=== PATIENT | male | born 1950 | race Caucasian/White ===

== ENCOUNTER 2021-07-18 11:21 | Outpatient (CLI) | payer MEDICARE, SELFPAY ==
[2021-07-18 13:42] LABS: SARS-CoV-2 RNA PCR Negative (Negative)
== END 2021-07-18 11:22 | disposition home or self-care (01) ==
LOC: CHSLAB 11:28
PROVIDERS: PCP Family Medicine; Visit Provider Family Medicine
DX: Z01.818 Encounter for other preprocedural examination (principal); Z20.822 Contact with and (suspected) exposure to COVID-19
CPT/HCPCS: C9803; U0003; U0005

== ENCOUNTER 2021-08-05 10:24 | Outpatient (CLI) | payer MEDICARE, SELFPAY ==
--- NOTE | 2021-08-05 11:12 | EST_ITS ---
Patient Info Name: Michelet Aburto Age: 71 years : 1950 Gender: Male Ht: 71 in Wt: 162 lbs BSA: 1.92 m2 HR: 97 bpm BP: 113 / 68 mmHg Heart Rhythm: Sinus Rhythm Exam Date: 08/05/2021 11:22 AM Exam Location: [facility] Patient Status: Outpatient Admit Date: 08/05/2021 Staff Ordering Physician: Peace Cody NP Attending Provider: Peace Cody NP Exercise Technologist: Emily Loja CT Exercise Physician: Valente Linn DO Exam Type: CA stress test treadmill Study Info Indications - Impaired Exercise Tolerance An exercise stress test was performed. Summary 1. 1. Negative Be exercise stress test for ischemic ST changes by ECG criteria. He achieved 82% MPHR for age group. 2. 2. Poor functional capacity, achieving 4.6 METs of workload. 3. 3. Appropriate HR response to exercise. 4. 4. Appropriate HR recovery at 1 minute post exercise. 5. 5. No imaging with stress testing. 6. 6. Patient informed of the above results. Protocol: [facility] ECG Details Stage: REST Duration (min): 0 min : 54 sec Speed (mph): 0.0 Grade (%): 0 HR (bpm): 96 SBP (mmHg): 113 DBP (mmHg): 68 METS: --- Stage: REST Duration (min): 5 min : 44 sec Speed (mph): 0.0 Grade (%): 0 HR (bpm): 102 SBP (mmHg): 113 DBP (mmHg): 68 METS: --- Stage: STAGE 1 Duration (min): 1 min : 0 sec Speed (mph): 1.7 Grade (%): 10 HR (bpm): 116 SBP (mmHg): 113 DBP (mmHg): 68 METS: --- Stage: STAGE 1 Duration (min): 2 min : 0 sec Speed (mph): 1.7 Grade (%): 10 HR (bpm): 122 SBP (mmHg): 113 DBP (mmHg): 68 METS: --- Stage: STAGE 1 Duration (min): 2 min : 0 sec Speed (mph): 1.7 Grade (%): 10 HR (bpm): 122 SBP (mmHg): 113 DBP (mmHg): 68 METS: --- Stage: RECOVERY Duration (min): 0 min : 59 sec Speed (mph): 0.0 Grade (%): 0 HR (bpm): 119 SBP (mmHg): 130 DBP (mmHg): 52 METS: --- Stage: RECOVERY Duration (min): 1 min : 59 sec Speed (mph): 0.0 Grade (%): 0 HR (bpm): 116 SBP (mmHg): 130 DBP (mmHg): 52 METS: --- Stage: RECOVERY Duration (min): 2 min : 44 sec Speed (mph): 0.0 Grade (%): 0 HR (bpm): --- SBP (mmHg): 140 DBP (mmHg): 67 METS: --- Rest HR: 102 bpm Peak HR: 122 bpm Rest Sys BP: 113 mmHg Peak Sys BP: 140 mmHg Max Pred HR: 147 bpm % Max Pred HR: 83 % Target HR: 125 bpm Max RPP: 17,080 bpm*mmHg Tompkins Score: -6 Termination Reason: Maximal effort/unable to continue Cardiac Symptoms: Shortness of breath Max ST Seg Deviation: 1.60 mm Total Time: 2 min : 0 sec Rest Pinto BP: 68 mmHg Peak Pinto BP: 67 mmHg Angina Score: None Total METS: 4.6 Resting ECG Sinus rhythm. Stress ECG No ST changes. Arrhythmias None. Report Signatures
== END 2021-08-05 10:25 | disposition home or self-care (01) ==
PROVIDERS: PCP Nurse Practitioner Family; Visit Provider Nurse Practitioner Family
DX: R09.89 Other specified symptoms and signs involving the circulatory and respiratory systems (principal)
CPT/HCPCS: 93017

== ENCOUNTER 2021-08-08 08:18 | Outpatient (CLI) | payer MEDICARE, SELFPAY ==
--- NOTE | ~2021-08-08 | XR_ITS ---
EXAMINATION: XR barium swallow modified DATE: 08/08/2021 09:31 INDICATION: Dysphagia, unspecified TECHNIQUE: Modified barium esophagram was performed by myself to administered fluoroscopy, in conjun ction with speech pathologist who administered barium in varying consistencies as per speech patholog ist documentation. This was recorded on tape. A single fluoroscopic spot image was recorded. The DAP for this procedure was 3.8 Gycm2. Fluoroscopy exposure time was 2.439 minutes. FINDINGS: Oral stage: Adequate function. Pharyngeal phase: Reduced laryngeal elevation and adduction, reduced pharyngeal squeeze, vallecular, piriform sinus and pharyngeal wall residue Laryngeal penetration: Present. Aspiration: Present. Laryngeal sensitivity: Absent. IMPRESSION: Abnormal modified barium swallow. Please refer to speech pathologist findings and specifi c feeding recommendations. Reviewed, dictated and finalized at location A. TRANSFER TECHNICIAN IMPRESSION: Abnormal modified barium swallow. Please refer to speech pathologis t findings and specific feeding recommendations.
--- NOTE | ~2021-08-08 | US_ITS ---
EXAMINATION: US carotid duplex BI DATE: 08/08/2021 10:46 INDICATION: Dizziness and giddiness. TECHNIQUE: Grayscale, color Doppler, and pulsed Doppler images of the cervical carotid arteries were obtained. The degree of vessel stenosis is placed in one of the following categories: normal, <50%, 5 0-69%, >=70% but less than near-occlusion, near-occlusion, or total occlusion. Note that percent sten osis relative to normal distal artery lumen diameter is indirectly measured from velocity measurement s as described by Miguel Angel, et al. Radiology 2003; 229:340-346. COMPARISON: CTA 03/02/2014, ultrasound 03/21/2015 FINDINGS: RIGHT: The right common carotid artery (CCA) peak systolic velocity (PSV) is 66 cm/s. The right internal car otid artery (ICA) is totally occluded. There is antegrade flow in the right vertebral artery. LEFT: The left CCA PSV is 106 cm/s. The left ICA PSV is 105 cm/s. The left ICA end-diastolic velocity (EDV) is 20 cm/s. The left ICA/CCA PSV ratio is 1.0. Grayscale and color Doppler images yield an estimate of <50% diameter reduction from plaque in the ICA. There is antegrade flow in the left vertebral eric ry. IMPRESSION: 1. 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 2. <50% stenosis in the left internal carotid artery. Reviewed, dictated and finalized at location A. R PUMP SERVICER
--- NOTE | 2021-08-08 13:43 | STOPEVAL ---
MODIFIED BARIUM SWALLOW EVALUATION: Thank you for referring Michelet Aburto to [facility].? Attending Provider: Peace Cody NP/Brandy Escamilla Referring Provider: * Outpatient Evaluation Outpatient Past Medical History Past Medical History Source of Past Medical History Patient Evaluation Information Problem Diagnosis dysphagia, weight loss; weak voice Additional Evaluation Detail pt reports increased phlegm production; Subjective Information Pt states that after he Query Text:As Reported By Patient/ received the COVID vaccine, he Family has had steady weight loss. Approximately 50lbs. Modified Barium Swallow Evaluation Recent Swallowing History Reports Dysphagia Yes History of Pneumonia No Reported Difficult Consistencies Solids Intake Method Prior to Swallow Oral Evaluation Diet Prior to Swallow Evaluation Regular, Level 7 Liquid Consistency Prior to Swallow Thin (0) Evaluation Consistency Mildly Thick Uncontrolled 1 Other Amount with chin tuck and cue for a small sip Method of Presentation Straw Oral Preparatory Symptoms Within Functional Limits Oral Phase Symptoms Within Functional Limits Pharyngeal Phase Symptoms Aspiration,Bony Protuberance, Laryngeal Penetration,Reduced Laryngeal Elevation,Reduced Lingual Pressure,Residue in [place] Severity of Vallecular Residue Moderate - 25-50 % Epiglottic Ligament Covered Severity of Pyriform Sinus Residue Trace - 1-5 % Trace Coating of the Mucosa 8 Point Laryngeal Penetration-Aspiration Material Enters Airway Below Scale Vocal Cords, No Effort Made to Eject Aspiration Severity Trace Pharyngeal Phase Comments no epiglottic inversion was exhibited. Solid Consistency Other Amount with chin tuck and cues to effortful swallow Method of Presentation Spoon Oral Preparatory Symptoms Within Functional Limits Oral Phase Symptoms Within Functional Limits, Lingual Pumping Pharyngeal Phase Symptoms Bony Protuberance,Laryngeal Penetration,Reduced Laryngeal Elevation,Reduced Lingual Pressure,Residue in [place] ,Residue/Pyriform Sinus Severity of Vallecular Residue Severe - > 50% Filled to Epiglottic Rim Severity of Pyriform Sinus Residue
== END 2021-08-08 08:19 | disposition home or self-care (01) ==
PROVIDERS: PCP Family Medicine; Visit Provider Nurse Practitioner Family
DX: R42 Dizziness and giddiness (principal); R68.89 Other general symptoms and signs; E78.5 Hyperlipidemia, unspecified; Z13.6 Encounter for screening for cardiovascular disorders; R13.10 Dysphagia, unspecified; R63.4 Abnormal weight loss; R93.89 Abnormal findings on diagnostic imaging of other specified body structures; I65.23 Occlusion and stenosis of bilateral carotid arteries
CPT/HCPCS: 92611; 93880

== ENCOUNTER 2021-09-19 09:34 | Outpatient (CLI) | payer MEDICARE, SELFPAY ==
--- NOTE | ~2021-09-19 | CT_ITS ---
EXAMINATION: CT brain wo con DATE: 09/19/2021 09:51 INDICATION: Dysphagia TECHNIQUE: Computed tomography (CT) of the head was performed without intravenous contrast. The dose- length product was 605.33 mGy-cm. Automated exposure control and iterative reconstruction technique w ere employed. COMPARISON: None FINDINGS: Mild generalized atrophy. There are scattered mild periventricular and subcortical white ma tter changes, most likely related to small vessel ischemic disease (microangiopathy). No ventriculome davion or midline shift. Paranasal sinuses and mastoids are pneumatized. No depressed skull fractures. Midline sagittal images are unremarkable. IMPRESSION: 1. No acute intracranial abnormality. 2: Chronic age-related findings. Reviewed, dictated and finalized at location B. RENCE ARCHIVIST
== END 2021-09-19 09:35 | disposition home or self-care (01) ==
PROVIDERS: PCP Family Medicine; Visit Provider Family Medicine
DX: R13.10 Dysphagia, unspecified (principal)
CPT/HCPCS: 70450

== ENCOUNTER 2021-10-03 11:00 | Outpatient (RCR) | payer MEDICARE, SELFPAY ==
--- NOTE | 2021-09-09 12:20 | STOPEVAL ---
Thank you for referring Michelet Aburto to [facility].? The patient is scheduled to be seen for therapy? 2x/week for 4 weeks. Please review, sign, date and return this plan of care LORENA. I agree with and certify that the following plan of care is medically necessary. Referring Physician Date Attending Provider: New Escamilla MD Assessment Status Assessment Status Evaluation Outpatient Past Medical History Past Medical History Source of Past Medical History Patient Neurological History Hx Neurological Disorders No Significant History Cardiovascular History Hx Hypertension Yes: Patient stated he had been on medicine but not now. Respiratory History Hx Other Respiratory Disorders Yes: Reports shortness of breath in bed until incline pillow; uses nasal cleane Gastrointestinal History Hx Other Gastrointestinal Disorders Yes: Constipation Genitourinary History Hx Other Genitourinary Disorders Yes: Has difficulty urinating at times. Musculoskeletal History Hx Musculoskeletal Disorders No Significant History Hematological History Hx Hematological Disorders No Significant History Endocrine History Hx Endocrine Disorders No Significant History HEENT History Hx Sinus Problems Yes: Uses a nasal welt stitch cleaner daily Integumentary History Hx Skin Disorders No Significant History Reproductive History Hx Reproductive Disorders No Significant History Psychosocial History Hx Depression Yes Hx Eating Disorder Yes: Reports poor appetite Pain History History of Any Previous or Ongoing No Significant History Instance of Pain Anesthesia History Hx Anesthesia Reactions No Significant History Evaluation Information Problem Diagnosis Dysphagia Onset 09/2020 Cause Unknown Subjective Information Patient reports that after he Query Text:As Reported By Patient/ had taken his first COVID Family vaccine in September,, he began feeling sick and began to lose weight. He reports that around that time, he began experiencing excessive phlegm in his throat causing him to have to cough and clear the material. Additional vaccines did not cause additional symptoms. He reports that he began to have difficulty swallowing including coughing after
--- NOTE | 2021-10-03 13:38 | STOPEVAL ---
SPEECH THERAPY DISCHARGE SUMMARY Thank you for referring Michelet Aburto to [facility].? Please review, sign, date and return this discharge summary. I agree with discharge at this time. Referring Physician Date Attending Provider: New Escamilla MD * Pain History History of Any Previous or Ongoing No Significant History Instance of Pain Anesthesia History Hx Anesthesia Reactions No Significant History Pain Assessment Timing of Pain Assessment Timing of Pain Assessment Re-assessment Pain Scale Pain Scale Used Numeric (1 - 10) Self Report Pain Assessment Right Hip(s) Reported Pain Level 2 Pain Description Aching Lowest Pain Intensity 2 Greatest Pain Intensity 3 Pain Aggravating Factors Walking,Weight Bearing/ Standing Pain Behaviors Grimacing Pain Score Pain Score 2: Self Report Interventions Used Interventions Used By Clinicians Distraction,Position Change ST Clinical Summary Clinical Summary ST Clinical Summary This patient was observed during fall prior to the Speech Therapy session. He reported attempting to turn and sit in a wheelchair, became dizzy and fell to the ground. Reports pain in right hip, not bothering him much until he stood to exit the wheelchair at end of session. Refused to go to Emergency Department. Apparently four to five staff members were present to assist with uprighting him into the wheelchair. An incident report was filed by staff who assisted patient. This patient has been seen for Speech Therapy twice a week since 09/10/21 for a total of seven visits (one visit omitted due to severe weather) with therapy focusing on improving swallowing skills. Patient has received four treatments of VitalStim,neuromuscular electrical stimulation to the throat to improve the strength of the swallow. Initially, a Modified Barium Swallow study on indicated risk of aspiration on thin liquids due to poor laryngeal elevation and epiglottal inversion. At this time of discharge, patient and report that he is able to swallow a variety of solids and liquids without signs of aspiration including wet vocal quality and throat clearing/coughing. See below for goal progress. Of concern is patient's vocal loudness (overall decreased),vocal pitch (determined to be higher than expected for a grown male and when compared to voice prior to weight loss), and speech intelligibility (consistent omission of /s,z/sounds and sh sound during conversational speech indicating most likely lingual weakness). Additionally, they report patient has poor appetite and therefore is not taking in enough calories per day to sustain even his current weight. Patient and spouse report patient has lost over 50 pounds in the past six months and that he has lost an additional two pounds since the initiation of Speech Therapy. Lastly, patient fell upon entering the outpatient center indicating concerns with his overall strength and his own ability to monitor his movements to avoid falling. This carries-over to his speech issues; even though he knows he is not speaking loudly or clearly, he still continues to speak as he has been. Patient performed as follows on goals:
== END 2021-10-06 10:36 | disposition home or self-care (01) ==
LOC: ANHST 11:00
PROVIDERS: PCP Family Medicine; Visit Provider Family Medicine
DX: R13.10 Dysphagia, unspecified (principal)
CPT/HCPCS: 92526; 92610

== ENCOUNTER 2021-10-10 12:39 | Outpatient (CLI) | payer MEDICARE, SELFPAY ==
--- NOTE | ~2021-10-10 | CT_ITS ---
EXAMINATION: CT chest abdomen pelvis w con DATE: 10/10/2021 13:14 INDICATION: Abnormal weight loss TECHNIQUE: Transaxial computed tomographic images of the chest, abdomen, and pelvis were obtained aft er the administration of 100 cc of Omnipaque 350 intravenous contrast. The dose-length product (DLP) was 577.52 mGy-cm. Automated exposure control and iterative reconstruction technique were employed. COMPARISON: None FINDINGS: CHEST CT: There is a 4 mm nodule of the left lung apex. The lungs are free of acute opacities. There is no pleu ral effusion or pneumothorax. No pathologically enlarged thoracic lymph nodes are identified. The hea rt size is normal. There is calcified coronary artery atherosclerosis. Low-density material projectin g in the proximal aspect of the right mainstem bronchus likely reflects secretions. 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 ABDOMEN/PELVIS CT: The liver, spleen, pancreas, gallbladder, and adrenal glands are normal. The kidneys are unremarkable . There is calcified atherosclerosis of the aorta and many of the other arteries. No pathologically e nlarged abdominal or pelvic lymph nodes are identified. There is no free intraperitoneal gas or evide nce of bowel obstruction. There is moderate lumbar spondylosis. IMPRESSION: 1. No CT correlate for the patient's symptoms. Reviewed, dictated and finalized at location A. ENPLAY WRITER
[2021-10-10 13:07] LABS: Estimated Glomerular Filt Rate > 60
== END 2021-10-10 12:40 | disposition home or self-care (01) ==
LOC: ANHIMG 12:46
PROVIDERS: PCP Family Medicine; Visit Provider Family Medicine
DX: R63.4 Abnormal weight loss (principal)
CPT/HCPCS: 71260; 74177; Q9967

== ENCOUNTER 2021-10-11 14:50 | Inpatient (IN) | payer MEDICARE, SELFPAY ==
[2021-10-11] VITALS (15 sets, daily range): BP systolic 94–161; BP diastolic 51–69; PULSE 80–114; RESP 18–31; TEMP 36.4–36.5; O2SAT 93–99; BMI 21.6
--- NOTE | ~2021-10-11 | CT_ITS ---
EXAMINATION: CT brain wo con DATE: 10/11/2021 16:00 INDICATION: Dysphagia. TECHNIQUE: Computed tomography (CT) of the head was performed without intravenous contrast. The dose- length product was 681.00 mGy-cm. Automated exposure control and iterative reconstruction technique w ere employed. COMPARISON: CT dated 09/19/2021 FINDINGS: Mild generalized atrophy. No acute intracranial hemorrhage, infarction, mass or mass effect . There are scattered mild periventricular and subcortical white matter changes, most likely related to small vessel ischemic disease (microangiopathy). No ventriculomegaly or midline shift. There is in tracranial atherosclerosis. Paranasal sinuses and mastoids are pneumatized. No depressed skull fractu res. IMPRESSION: 1. No acute intracranial abnormality. Reviewed, dictated and finalized at location A. BUILDER SUPERVISOR
--- NOTE | ~2021-10-11 | XR_ITS ---
EXAMINATION: XR chest 1V 10/11/2021 16:03 INDICATION: Hypoxia. PROCEDURE: AP portable chest COMPARISON: 04/02/2014 FINDINGS: The lungs are clear. The cardiomediastinal silhouette is within normal limits. There are no pleural effusions. There is no pneumothorax suspected. There is prominent bilateral costochondra l calcification at the first ribs. The lungs are hyperinflated which is consistent with, but not diag nostic of chronic obstructive pulmonary disease. IMPRESSION: 1: NO ACUTE CARDIOPULMONARY DISEASE. Reviewed, dictated and finalized at location A. ATE SECURITY GUARD
--- NOTE | 2021-10-11 15:03 | ECG_ITS ---
Measurements Intervals [place] Rate: 88 P: 76 MN: 145 QRS: 66 QRSD: 94 T: 64 QT: 363 QTc: 441 Interpretive Statements SINUS RHYTHM BASELINE ARTIFACT- II, III, AVR, AVL, AVF NORMAL ECG Electronically Signed On 10-12-2021 7:49:44 VOLUNTEER SPECIALIST by Valente Linn D.O.
[2021-10-11 15:12] LABS: Glucose Point of Care 130 mg/dl (65-105)
[2021-10-11 15:14] LABS: Basophils Absolute Auto 0.1 K/mm3 (0.0-0.1); Basophils Percent Auto 0.4 % (0.2-1.2); Eosinophils Percent Auto 0.3 % (0-4.4); Hematocrit 44.3 % (42.0-52.0); Hemoglobin 13.6 g/dL (14.0-18.0); Immature Granulocyte Absolute 0.03 K/mm3 (0.00-0.031); Immature Granulocyte Percent A 0.2 % (0-0.5); Lymphocytes Absolute Auto 1.97 K/mm3 (0.9-3.2); Lymphocytes Percent Auto 16.2 % (18.3-44.2); Mean Corpuscular HGB Conc 30.7 g/dl (32-36); Mean Corpuscular Hemoglobin 28.3 pg (26-34); Mean Corpuscular Volume 92.1 fl (80-100); Mean Platelet Volume 9.2 fl (7.4-10.4); Monocytes Absolute Auto 0.7 K/mm3 (0.1-0.6); Monocytes Percent Auto 5.9 % (2.6-8.5); Neutrophils Absolute Auto 9.3 K/mm3 (1.3-6.7); Platelet Count Result 303 k/mm3 (150-375); Red Blood Count 4.81 M/mm3 (4.6-6.20); Red Cell Distribution Width 13.5 % (11.5-14.5); White Blood Count 12.1 K/mm3 (4.5-10.0)
[2021-10-11 15:31] LABS: Prothrombin Time 12.7 Seconds (11.1-14.7)
--- NOTE | 2021-10-11 15:31 | ED.AMS ---
HPI - Altered Mental Status General Chief Complaint: Altered Mental Status Stated Complaint: WEAKNESS,AMS Time Seen by Provider: 10/11/21 15:09 Source: patient History of Present Illness HPI narrative: Patient brought in for altered mental status. Family reports over the past 2 weeks he has had progressive of weakness and decreased appetite his symptoms come more severe over the past 2 to 3 days. This morning family came over to visit he and the was unable to wake her up and noted pulse ox in the 80% at home they called EMS and he was brought into the ER for further evaluation. Family has not noted any nausea or vomiting have not noted any fevers noted no recent cough or congestion. Patient had not recently complaining of any focal areas of pain. Related Data Home Medications Medication Instructions Recorded Confirmed aspirin 325 mg tablet 325 mg PO DAILY 07/07/21 09/16/21 melatonin PO 07/07/21 09/16/21 rosuvastatin 20 mg tablet 20 mg PO DAILY 07/07/21 09/16/21 metoprolol succinate 50 mg 50 mg PO DAILY 08/06/21 09/16/21 tablet,extended release 24 hr Allergies Allergy/AdvReac Type Severity Reaction Status Date / Time hydrocodone Allergy Mild ITCHING Verified 10/11/21 15:27 Review of Systems Review of Systems: ROS unobtainable: Yes unobtainable due to medical condition PMFSH Past Medical History Medical History BPH without obstruction/lower urinary tract symptoms COPD (chronic obstructive pulmonary disease) Decreased activity tolerance Depression with anxiety Dizziness Dizziness, nonspecific Dysphagia CT of the brain on 09/19/2021 was negative Encounter to establish care Fatigue GERD (gastroesophageal reflux disease) Hyperlipidemia Nocturia Right knee pain Right-sided carotid artery disease 100% occlusion of the right coronary artery on carotid Doppler study 08/08/2021 with less than 50% on left Screening examination for infectious disease Screening for cardiovascular condition Seasonal allergic rhinitis Sinusitis Weight loss CT of the brain on 09/19/2021 was negative. Social History Social History Smoking status: Never smoker Alcohol intake: never Substance use: never Substance use type: does not use Exam Narrative: GENERAL: Well-appearing, well-nourished, and in no acute distress. HEAD: Normocephalic, atraumatic. EYES: PERRLA and EOMI. ENT: Nares clear, no rhinorrhea or epistaxis. Mucous membranes moist. NECK: Supple. No masses. No JVD CHEST: Clear to auscultation. No respiratory distress. No wheezes rales or rhonchi HEART: Regular rate and rhythm. No murmur heard. Normal peripheral pulses. ABDOMEN: Soft, nontender, nondistended, normal active bowel sounds. EXTREMITIES: Normal range of motion. No edema. SKIN: Warm, dry, no rash. NEURO: Patient moves all extremities in response to noxious stimuli does not respond to any verbal commands PSYCH: Normal mood and affect. Course Reevaluation(s) Reevaluation #1: Patient now responding to yes/no questions voices concerns that he needs to urinate Date: 10/11/21 Time: 15:41 Reevaluation #2: Patient resting comfortably on BiPAP work-up and imaging reviewed with patient and family patient family are comfortable with inpatient plan. Date: 10/11/21 Time: 16:41 Vital Signs Vital signs: Vital Signs Temperature 36.4 C 10/11/21 14:53 Pulse Rate 97 10/11/21 14:53 Respiratory Rate 20 10/11/21 14:53 Blood Pressure 161/69 H 10/11/21 14:53 Pulse Oximetry 99 10/11/21 14:53 Temperature 36.4 C 10/11/21 14:53 Pulse Rate 96 10/11/21 18:55 Respiratory Rate 19 10/11/21 18:55 Blood Pressure 94/51 L 10/11/21 18:55 Pulse Oximetry 96 10/11/21 18:55 MDM - Altered Mental Status MDM Narrative Medical decision making narrative: Patient brought in for altered mental status. Patient initially responded r
[2021-10-11 15:32] LABS: Partial Thromboplastin Time 28.8 SECONDS (22.3-36.8)
[2021-10-11 15:34] LABS: Alveolar/Arterial O2 Gradient 13.8 mmHg; Base Excess ABG 13.2 mEq/l (+/-2.0); Fractional Inspired Oxygen 32 %; HCO3 ABG 44.2 mEq/l (22.0-26.0); Oxygen Content ABG 19.3 %vol (16.0-22.0); Oxyhemoglobin 96.2 % THb (90.0-100.0); PO2 ABG 106.1 mmHg (80.0-100.0); PO2 FiO2 Ratio Arterial Blood 3.32 %; Total Hemoglobin 14.2 g/dL (12.0-18.0)
[2021-10-11 15:35] LABS: pH ABG 7.297 (7.350-7.450)
[2021-10-11 15:36] LABS: Device NASAL CANNULA; Modified Allen's Test Pass; PCO2 ABG 92.5 mmHg (35.0-45.0); Site Drawn RIGHT RADIAL
[2021-10-11 15:42] LABS: Add Urine Microscopic? YES; Appearance Urine Clear (Clear); Bacteria Urine Trace /hpf; Bilirubin Urine Negative (Negative); Blood Urine Negative (Negative); Color Urine Yellow (Yellow); Glucose Urine UA Negative (Negative); Ketones Urine Negative (Negative); Leukocyte Esterase Ur Negative LEU/UL (Negative); Mucus Urine Rare /lpf; Nitrate Urine Negative (Negative); Protein Urine Negative (Negative); RBC Urine 0-2 /hpf (0-2); Specific Grav Ur 1.021 (1.001-1.035); WBC Urine 0-3 /hpf
[2021-10-11] MEDS: SODIUM CHLORIDE 0.9% IV 500 ML 999 ML IV CONT (15:51)
[2021-10-11 16:02] LABS: Lactic Acid Reflex < 0.5 mmol/L (0.7-2.1)
[2021-10-11 16:13] LABS: Alanine Aminotransferase 19 U/L (4-50); Alkaline Phosphatase 93 U/L (38-126); Aspartate Amino Transferase 23 U/L (17-59); Bilirubin,Total 0.5 mg/dL (0.2-1.3); Blood Urea Nitrogen 23 mg/dL (9-20); Calcium 10.1 mg/dL (8.4-10.2); Carbon Dioxide > 40 mmol/L (22-30); Chloride 97 mmol/L (98-107); Estimated Glomerular Filt Rate > 60; Glucose 132 mg/dL (65-110); Potassium 3.9 mmol/L (3.4-5.0); Sodium 143 mmol/L (137-145)
[2021-10-11] MEDS: methylPREDNISolone SOD SUCC 125 MG VIAL IV PUSH (16:49)
[2021-10-11] MEDS: ALBUTEROL SULFATE NEB 2.5 MG/0.5 ML INH 5 MG INHALATION (16:52)
[2021-10-11] MEDS: IPRATROPIUM BR 0.02% INH SOLN 0.5 MG/2.5 ML VIAL INHALATION (16:53)
--- NOTE | 2021-10-11 17:30 | PM.IMHP ---
H&P: HPI History of Present Illness Date/Time: 10/11/21 17:30 Chief Complaint: Altered mental status. Narrative: This is a 71-year-old male with COPD, sleep apnea, hypertension, GERD, depression, and benign prostatic hyperplasia who presented to the emergency department via EMS from home for evaluation of altered mental status. He is currently a bit confused and on BiPAP in thus a majority of the following is obtained via a review of his electronic medical records as well as discussions with his . Over the past 3 days or so he has been less interactive and ?not thinking straight.? This morning his was unable to arouse him from sleep and she called 911. On EMS arrival his SpO2 was in the 80s and he was placed on nasal cannula. ABG done on arrival showed a pCO2 greater than 90 and he has been started on a BiPAP. Over the last hour so he has become progressively more awake and oriented. Patient's reports that he was diagnosed with COPD but he has never had a formal workup and he is on no inhalers at home. She goes on to say that he has ?no symptoms? to suggest that he has underlying COPD and she says he never seems short of breath though he reported chronic shortness of breath to his doctor, worse over last 3 months, on a visit just several weeks ago. She goes on to say that for the last several months he has essentially lived on the couch, getting up only to use the bathroom. He eats his meals and sleeps on the couch. Apparently he has no energy, is very fatigued, and sleeps a lot. She attributes that to a 60 lb weight loss in just under years time despite ?taking in enough calories, at least 1800 to 2500 a day.? His doctor has done a thorough evaluation for his weight loss to include upper and lower endoscopies which were reportedly unremarkable. He has had a normal PSA. CT of the chest, abdomen, and pelvis showed no findings. He did have a swallow study done couple of months ago due to dysphagia and he completed 10 therapy sessions with the speech therapist and apparently he has not had any other problems with dysphagia. Since the weight loss he apparently no longer snores and he has not used a CPAP for quite some time. He has not had any recent cold or flu symptoms. At the time my evaluation he denies fever, chills, sweats, chest pain, pleuritic pain, current shortness of breath, nausea, vomiting, orthopnea, PND, and lower extremity edema. Review of Systems Review of Systems: Twelve systems were reviewed. Somewhat limited as he is still a bit confused though his fills in the gaps. Except as documented in HPI, all other systems were reviewed and are negative. [facility] Past Medical History Medical History Benign prostatic hyperplasia Chronic obstructive pulmonary disease Depression with anxiety Dysphagia CT of the brain on 09/19/2021 was negative. Completed 10 sessions with speech therapist. Gastroesophageal reflux disease History of tobacco abuse Hyperlipidemia Nocturia Right-sided carotid artery disease 100% occlusion of the right coronary artery on carotid Doppler study 08/08/2021 with less than 50% on left. Seasonal allergic rhinitis Weight loss Nearly 60 lb unintentional weight loss in 2020. CT of the brain, chest, abdomen, and pelvis were unremarkable in August and September 2021. Upper and lower endoscopies also reportedly unremarkable in fall 2020. Has had normal PSA. Surgical History Surgical History History of cardiac catheterization Family History Family History Sibling Colon cancer Father Hypertension Social History Social History Social History: Surrogate decision maker: Yumiko Aburto, spouse. They have 4 adult children. Code status: Do not resuscitate. Smoking packs per day: 1
[2021-10-11 17:35] LABS: Alveolar/Arterial O2 Gradient 31.1 mmHg; Base Excess ABG 10.7 mEq/l (+/-2.0); Carboxyhemoglobin 0.5 % THb (0-2.0); Fractional Inspired Oxygen 30 %; Methemoglobin ABG 0.2 %THb (0-1.5); Oxygen Content ABG 17.9 %vol (16.0-22.0); Oxygen Saturation ABG 97.1 % (95.0-100.0); Oxyhemoglobin 96.6 % THb (90.0-100.0); PO2 ABG 100.1 mmHg (80.0-100.0); PO2 FiO2 Ratio Arterial Blood 3.34 %; Reduced Hemoglobin 2.7 %THb (0-5.0); Total Hemoglobin 13.1 g/dL (12.0-18.0); pH ABG 7.361 (7.350-7.450)
[2021-10-11 17:36] LABS: Device NON-INVASIVE VENT; Modified Allen's Test Pass; Non-Invasive Expiratory Pressure 6 CMH2O; Non-Invasive Inspiratory Pressure 18 CMH2O; Non-Invasive Vent Rate 22 /MIN; PCO2 ABG 70.4 mmHg (35.0-45.0); Site Drawn RIGHT RADIAL
[2021-10-11] MEDS: SODIUM CHLORIDE 0.9% IV 1,000 ML 125 ML IV CONT (18:05)
--- NOTE | 2021-10-11 20:52 | ADMIMU ---
This patient, Michelet Valladarescynthia Jones, was admitted to IMU status, and placed in IMU Room 201-01 at 2000. Patient/family oriented to hospital policies and general routines including ID bracelet, bed and alarms, visiting hours, pain management, procedures, bathroom and other care routines, personal items, smoking policy, room service/diet, and visiting hours. Valuables list has been completed. Information on how to activate the Rapid Response Team has been discussed. Patient/Family are encouraged to report perceived risks to care and to ask questions if they do not understand what they are told or what they should do.
--- NOTE | 2021-10-11 20:52 | PC.NURSE ---
Yumiko called and admit information and med list obtained. states that patient has been losing weight since last October and so far has lost 56 pounds. He has become so weak he has had to have swallow therapy and his last appointment was Oct 03 2021. Patient has also fallen twice in last 2 weeks and has been having dizzy spells. relays that speech therapy was recommended (because his voice has become weak) at last appointment of swallow therapy and he has since been swallowing well-no restrictions.
[2021-10-12] VITALS (28 sets, daily range): BP systolic 96–127; BP diastolic 42–76; PULSE 68–109; RESP 14–22; TEMP 36.2–36.7; O2SAT 96–100
[2021-10-12] MEDS: methylPREDNISolone SOD SUCC 125 MG VIAL 60 MG IV PUSH ×4 (00:45→18:22)
[2021-10-12] MEDS: SODIUM CHLORIDE 0.9% IV 1,000 ML 125 ML IV CONT (00:45)
[2021-10-12] MEDS: IPRATROPIUM BR 0.02% INH SOLN 0.5 MG/2.5 ML VIAL INHALATION ×4 (01:09→20:00)
[2021-10-12] MEDS: ALBUTEROL SULFATE NEB 2.5 MG/0.5 ML INH 5 MG INHALATION ×4 (01:09→20:00)
[2021-10-12 01:24] LABS: Alveolar/Arterial O2 Gradient 35.2 mmHg; Base Excess ABG 7.3 mEq/l (+/-2.0); Carboxyhemoglobin 0.3 % THb (0-2.0); Fractional Inspired Oxygen 30 %; HCO3 ABG 33.9 mEq/l (22.0-26.0); Methemoglobin ABG 0.5 %THb (0-1.5); Oxygen Content ABG 17.4 %vol (16.0-22.0); Oxyhemoglobin 96.6 % THb (90.0-100.0); PCO2 ABG 57.1 mmHg (35.0-45.0); PO2 ABG 111.6 mmHg (80.0-100.0); PO2 FiO2 Ratio Arterial Blood 3.72 %; Reduced Hemoglobin 2.6 %THb (0-5.0); Total Hemoglobin 12.7 g/dL (12.0-18.0); pH ABG 7.392 (7.350-7.450)
[2021-10-12 01:25] LABS: Device NON-INVASIVE VENT; Modified Allen's Test Pass; Non-Invasive Inspiratory Pressure 16 CMH2O; Non-Invasive Vent Rate 18 /MIN; Site Drawn RIGHT RADIAL
[2021-10-12 01:26] LABS: Non-Invasive Expiratory Pressure 6 CMH2O
[2021-10-12 05:01] LABS: Hematocrit 37.7 % (42.0-52.0); Hemoglobin 11.5 g/dL (14.0-18.0); Mean Corpuscular HGB Conc 30.5 g/dl (32-36); Mean Corpuscular Hemoglobin 28.3 pg (26-34); Mean Corpuscular Volume 92.6 fl (80-100); Mean Platelet Volume 9.7 fl (7.4-10.4); Platelet Count Result 257 k/mm3 (150-375); Red Blood Count 4.07 M/mm3 (4.6-6.20); Red Cell Distribution Width 13.8 % (11.5-14.5); White Blood Count 8.4 K/mm3 (4.5-10.0)
[2021-10-12 05:13] LABS: Alanine Aminotransferase 20 U/L (4-50); Albumin Level 3.5 g/dL (3.5-5.1); Alkaline Phosphatase 75 U/L (38-126); Anion Gap 3 mmol/L (8-16); Aspartate Amino Transferase 23 U/L (17-59); Bilirubin,Total 0.7 mg/dL (0.2-1.3); Blood Urea Nitrogen 36 mg/dL (9-20); Calcium 9.6 mg/dL (8.4-10.2); Carbon Dioxide 35 mmol/L (22-30); Chloride 101 mmol/L (98-107); Estimated CRCL calculation 73 ml/min; Estimated Glomerular Filt Rate > 60; Glucose 159 mg/dL (65-110); Magnesium 2.2 mg/dL (1.6-2.3); Potassium 4.3 mmol/L (3.4-5.0); Sodium 139 mmol/L (137-145)
[2021-10-12 05:17] LABS: Prealbumin 16.5 mg/dL (17.6-36.0)
[2021-10-12 06:13] LABS: Thyroid Stimulating Hormone Reflex 0.342 uIU/mL (0.465-4.68)
[2021-10-12] MEDS: ENOXAPARIN 40 MG/0.4 ML SYRINGE SUB-Q (08:04)
[2021-10-12 08:15] LABS: EDCOVIDSCREEN Negative (Negative)
[2021-10-12 08:41] LABS: Free T4 Free Thyroxine Reflex 1.16 ng/dL (0.78-2.19)
[2021-10-12 09:22] LABS: Total Triiodothyronine (T3) 0.59 NG/ML (0.97-1.69)
--- NOTE | 2021-10-12 09:48 | PM.IMPN ---
Progress Note: A&P Assessment and Plan (1) Acute respiratory failure with hypoxia and hypercarbia: Code(s): J96.01 - Acute respiratory failure with hypoxia; J96.02 - Acute respiratory failure with hypercapnia Status: Acute Assessment and Plan: Patient is currently on BiPAP with improvement his blood gases. He will remain on BiPAP overnight. I will ask Dr. Avina to see him in consultation as he needs close follow-up and a formal outpatient work with regards to his COPD. (2) Encephalopathy: Code(s): G93.40 - Encephalopathy, unspecified Status: Acute Assessment and Plan: Secondary to hypercarbia, improved since he has been started on BiPAP. Now A&O x4. (3) COPD exacerbation: Code(s): J44.1 - Chronic obstructive pulmonary disease with (acute) exacerbation Status: Acute Assessment and Plan: Continue scheduled bronchodilators and methylprednisolone. (4) Carotid artery disease: Code(s): I77.9 - Disorder of arteries and arterioles, unspecified Status: Acute Assessment and Plan: Status post left carotid endarterectomy with known 100% occlusion on right. Brain CT unremarkable. (5) Depression: Code(s): F32.A - Depression, unspecified Status: Acute Assessment and Plan: May be playing a role in his decline recently (spends most of this time the couch, weight loss). Patient denies harmful thoughts. (6) Weight loss: Code(s): R63.4 - Abnormal weight loss Status: Acute Assessment and Plan: 10/12/2021 Plan is to continue BiPAP. Patient TSH and T3 are abnormal will repeat them if needed treat. Otherwise continue current plan of care and treatment. Subjective Date/time seen: 10/12/21 09:48 Patient was seen during the morning rounds today. Still requiring BiPAP treatment. Mild shortness of breath, no chest pain. No abdominal pain, no nausea, no vomiting, mood stable. Review of Systems Review of Systems: All systems reviewed & are unremarkable except as noted in HPI and below (the history and physical examination.) Exam Narrative: General: Moderately ill-appearing male sitting up in bed on BiPAP. Weight: 72.4 kg. BMI: 21.6. HEENT: PERRL, EOMI. Sclerae anicteric. Conjunctiva mildly injected. Oral mucosa appears tacky through the mask. Neck: Supple. No JVD. Unable to assess for bruits given transmitted sounds from BiPAP. Respiratory: On BiPAP, tolerating it well. Diminished lung sounds throughout with faint expiratory wheezes. Cardiovascular: Regular rate and rhythm with S1-S2. Gastrointestinal: Abdomen is soft, nontender, and nondistended with positive bowel sounds. Skin: Warm and dry. No rash or lesions on limited exam. Extremities: No cyanosis, clubbing, or edema. Radial and pedal pulses intact. Negative sign. Neurological: Alert and oriented x4 after being on BiPAP for an hour. Cranial nerves 2-12 are grossly intact. Speech is clear. No facial asymmetry. Hand state director and foot pushes equal bilaterally. Noted to move upper and lower extremities. No gross focal deficits to casual conversation. Psychiatric: Appropriate mood and affect. Seems a bit disoriented with regards what happened today and how he ended up in the hospital. Objective Data Vital Signs Vital Signs: Vital Signs - 24 hr 10/11/21 14:53 10/11/21 15:46 10/11/21 16:42 Temperature 36.4 C Pulse Rate 97 98 80 Respiratory Rate 20 25 H 20 Blood Pressure 161/69 H Pulse Oximetry 99 94 93 10/11/21 16:47 10/11/21 16:50 10/11/21 17:02 Temperature Pulse Rate 88 88 114 H Respiratory Rate 22 H 22 H 22 H Blood Pressure Pulse Oximetry 10/11/21 17:30 10/11/21 18:55 10/11/21 19:50 Temperature 36.4 C L Pulse Rate 96 96 97 Respiratory Rate 31 H 19 20 Blood Pressure 94/51 L 95/51 L Pulse Oximetry 96 99 10/11/21 20:00 10/11/21 20:02 10/11/21 21:36 Temperature Pulse Rate 95 81 Respiratory Rate 18 Blood Pre
--- NOTE | 2021-10-12 16:36 | PM.CNPUL ---
Assessment and Plan Assessment and plan (1) Acute respiratory failure with hypoxia and hypercarbia: Code(s): J96.01 - Acute respiratory failure with hypoxia; J96.02 - Acute respiratory failure with hypercapnia Status: Acute Assessment and Plan: He was admitted with increased shortness of breath, acute on chronic hypercapnic hypoxemic respiratory failure that responded to BiPAP and O2. His main complaint over the last year is unintended weight loss. He has 2 birds in his home, raising the concern for hypersensitivity pneumonitis however the chest CT does not show typical findings present in HP- no GGO, nodules, air trapping, or fibrosis. Sometimes the CT findings are fleeting. He has been short of breath for months and losing weight for a year. His imaging should show something abnormal. His CXR shows hyperinflation without any evidence of fibrosis. Will check a HP panel, MADELYN, and add more COPD treatment with Advair. He will need O2 walk study before going home, and PFT with testing of respiratory muscle strength MEP and MIP 4-8 weeks after discharge. He has documented laryngeal penetration with swallowing however no signs of aspiration. He completed 7 sessions of speech therapy however still had a weak raspy voice and abnormal enunciation of some words. He may have a progressive neurological process that contributed to his hypercapnia. (2) COPD exacerbation: Code(s): J44.1 - Chronic obstructive pulmonary disease with (acute) exacerbation Status: Acute Assessment and Plan: He has COPD clinically, not on medications at home. Will add Advair, change solumedrol to prednisone tomorrow am and start taper. (3) History of tobacco abuse: Code(s): Z87.891 - Personal history of nicotine dependence Status: Acute Assessment and Plan: 1 ppd x 50 years, stopped around 2011; still a candidate for annual LDCT screening History of Present Illness History of Present Illness Consult date: 10/12/21 Requesting physician: Adamaris Byrd PA-C Reason for consult: other (hypercapnia) Chief complaint: respiratory failure Narrative: NEW: Michelet Aburto is a 71 year old man with worsening weight loss over the last year. He says that he was around 200 lb / 90 kg when he had his first COVID vaccination in Sep 2020, and has had progressive weight loss since, currently 72 kg = 158.7 lb, 42 lb estimate lost. He has had multiple tests to evaluate this including modified barium swallow 08/08/2021 showing laryngeal penetration, and was treated with speech therapy. His TSH was normal in Jul. His CT chest/abd/pelvis 10/10/21 did not show anything to explain his wt loss. He has a history of smoking starting at age 10, smoked on average 1 ppd for 50 years, quit about 10 years ago. He has noticed increased shortness of breath over the last 3 months with coughing that produces thick clear sputum. His CXR shows hyperinflation, so likely has COPD. His ABG shows acute on chronic respiratory acidosis with partial metabolic compensation. His initial ABG showed pH 7.297/pCO2 92.5/pO2 106 on 3 L O2 and HCO3 44.2 He was placed on BiPAP 07/02 with improvement in pCO2, pCO2 70 then 57. He has a parakeet and a macaw as well as a dog. The birds have lived in the home over 5 years. They had chickens over 10 years ago. He does not use feather pillows. He has no exposure to mold. He retired from the [employer] in 2014, no exposure. Review of Systems Review of Systems: 40 lb weight loss over the last year weakness, Respiratory: Comments: He has an infrequent cough with clear sputum that is hard to expectorate; he does not have frequent respiratory infections; He does not have hemoptysis or wheezing. He has not used inhalers. PMFSH Past M
[2021-10-12] MEDS: FLUTICASONE/SALMETEROL 115-21 MCG INHALER 1 PUFF 2 PUFF INHALATION (20:00)
[2021-10-12] MEDS: TAMSULOSIN HCL 0.4 MG CAPSULE PO (20:30)
[2021-10-13] VITALS (20 sets, daily range): BP systolic 123–150; BP diastolic 58–75; PULSE 72–110; RESP 16–23; TEMP 36.7–37.2; O2SAT 92–100; BMI 21.5
--- NOTE | 2021-10-13 | ECHO_ITS ---
Patient Info Name: Michelet Aburto Age: 71 years : 1950 Gender: Male Ht: 72 in Wt: 159 lbs BSA: 1.91 m2 HR: 79 bpm BP: 125 / 70 mmHg Heart Rhythm: Sinus Rhythm Technical Quality: Fair Exam Date: 10/13/2021 12:33 PM Exam Location: [facility] Patient Status: Inpatient Admit Date: 10/11/2021 Staff Ordering Physician: Adamaris Byrd PA-C Financial Processing Clerk: Rosa Barrett RDCS Attending Provider: Fahad Alvarez MD Referring Physician: Rochelle MORENO; Exam Type: CA echo doppler color flow Study Info Indications - respiratory failure Complete two-dimensional, color flow and Doppler transthoracic echocardiogram is performed. Summary 1. Complete two-dimensional, color flow and Doppler transthoracic echocardiogram is performed. 2. Left ventricular systolic function is hyperdynamic, estimated at >70%. 3. The left ventricular diastolic function is grade I diastolic dysfunction. 4. Right ventricular chamber dimension is normal. 5. No significant valvular dysfunction. Left Ventricle Left ventricular chamber dimension is normal. Left ventricular systolic function is hyperdynamic, estimated at >70%. The left ventricular diastolic function is grade I diastolic dysfunction. Right Ventricle Right ventricular chamber dimension is normal. Left Atria Left atrial chamber dimension is normal. Right Atria Right atrial chamber dimension is normal. Aortic Valve The aortic valve is normal. Pulmonic Valve The pulmonic valve is normal. Mitral Valve The mitral valve has normal leaflets. The mitral valve annulus is mildly calcified. Tricuspid Valve The tricuspid valve leaflets are normal. Pericardium/Pleural The pericardium appears normal. Aorta The aortic root size at the sinus of Valsalva is normal. Left Ventricular Outflow Tract Name Value Normal LVOT 2D LVOT Diameter 1.9 cm LVOT Doppler LVOT Peak Gradient 7 mmHg LVOT Mean Gradient 4 mmHg LVOT VTI 23 cm LVOT VTI/AV VTI Ratio 0.8 LVOT Stroke Volume 67 ml LVOT CO 6.7 l/min LVOT CI 3.5 l/min/m2 Pulmonic Valve Name Value Normal PV Doppler PV Peak Gradient 6 mmHg Mitral Valve Name Value Normal MV Doppler MV Decel [place] 502 cm/s2 MV PHT 59 ms MV Area (PHT) 3.7 cm2 4.0-5.0 MV Diastolic Function
[2021-10-13] MEDS: ALBUTEROL SULFATE NEB 2.5 MG/0.5 ML INH 5 MG INHALATION ×3 (02:00→21:25)
[2021-10-13] MEDS: IPRATROPIUM BR 0.02% INH SOLN 0.5 MG/2.5 ML VIAL INHALATION ×3 (02:00→21:25)
[2021-10-13 04:53] LABS: Ammonia < 9 umol/L (9-30)
[2021-10-13 05:04] LABS: Alanine Aminotransferase 37 U/L (4-50); Albumin Level 3.3 g/dL (3.5-5.1); Alkaline Phosphatase 67 U/L (38-126); Anion Gap 4 mmol/L (8-16); Aspartate Amino Transferase 31 U/L (17-59); Bilirubin,Total 0.3 mg/dL (0.2-1.3); Blood Urea Nitrogen 50 mg/dL (9-20); Calcium 9.8 mg/dL (8.4-10.2); Carbon Dioxide 37 mmol/L (22-30); Chloride 100 mmol/L (98-107); Estimated CRCL calculation 95 ml/min; Estimated Glomerular Filt Rate > 60; Glucose 145 mg/dL (65-110); Potassium 3.8 mmol/L (3.4-5.0); Sodium 141 mmol/L (137-145)
--- NOTE | 2021-10-13 08:03 | P.CDI_ITS ---
CDI Query Clarification Request -Encephalopathy has been documented - Secondary to hypercarbia, improved since he has been started on BiPAP. Now A&O x4 documented. Please clarify type of encephalopathy: * Metabolic * Toxic * Hepatic * Hypertensive * Anoxic * Other * Unable to determine <Iris Moseley RN - Last Filed: 10/13/21 08:05> Clarified Diagnosis (1) Encephalopathy: Code(s): G93.40 - Encephalopathy, unspecified <Iris Moseley RN - Last Filed: 10/13/21 08:05> Status: Acute <Iris Moseley RN - Last Filed: 10/13/21 08:05> Assessment and Plan: Acute metabolic encephalopathy. <Silvia Ace MD - Last Filed: 10/14/21 07:30>
[2021-10-13 08:43] LABS: Hematocrit 33.6 % (42.0-52.0); Hemoglobin 10.8 g/dL (14.0-18.0); Mean Corpuscular HGB Conc 32.1 g/dl (32-36); Mean Corpuscular Hemoglobin 28.8 pg (26-34); Mean Corpuscular Volume 89.6 fl (80-100); Mean Platelet Volume 10.1 fl (7.4-10.4); Platelet Count Result 265 k/mm3 (150-375); Red Blood Count 3.75 M/mm3 (4.6-6.20); Red Cell Distribution Width 13.8 % (11.5-14.5); White Blood Count 14.6 K/mm3 (4.5-10.0)
[2021-10-13] MEDS: FLUTICASONE/SALMETEROL 115-21 MCG INHALER 1 PUFF 2 PUFF INHALATION ×2 (08:45→21:25)
--- NOTE | 2021-10-13 09:08 | PM.IMPN ---
Progress Note: A&P Assessment and Plan (1) Acute respiratory failure with hypoxia and hypercarbia: Code(s): J96.01 - Acute respiratory failure with hypoxia; J96.02 - Acute respiratory failure with hypercapnia Status: Acute Assessment and Plan: Patient is currently requiring BiPAP overnight. Patient is currently being evaluated for COPD and apnea/hypopnea. Pulmonary was consulted. (2) Encephalopathy: Code(s): G93.40 - Encephalopathy, unspecified Status: Acute Assessment and Plan: Resolved. It was thought to be secondary to hypercarbia, improved since he has been started on BiPAP. Now A&O x4. (3) COPD exacerbation: Code(s): J44.1 - Chronic obstructive pulmonary disease with (acute) exacerbation Status: Acute Assessment and Plan: Continue scheduled bronchodilators and methylprednisolone. (4) Carotid artery disease: Code(s): I77.9 - Disorder of arteries and arterioles, unspecified Status: Acute Assessment and Plan: Status post left carotid endarterectomy with known 100% occlusion on right. Brain CT unremarkable. (5) Depression: Code(s): F32.A - Depression, unspecified Status: Acute Assessment and Plan: May be playing a role in his decline recently (spends most of this time the couch, weight loss). Patient denies harmful thoughts. (6) Weight loss: Code(s): R63.4 - Abnormal weight loss Status: Acute Assessment and Plan: Reportedly he has had in nearly 60 lb unintentional weight loss last year. Extensive workup has been unrevealing. Swallowing evaluation was done with level 6 diet soft and bite size. (7) Dysphagia: Code(s): R13.10 - Dysphagia, unspecified Status: Acute Assessment and Plan: Recently completed speech therapy. Swallow study showed laryngeal penetration without aspiration. With dysphagia, possible dysarthria (garbled speech on exam though he is still a bit confused and on BiPAP), and hypoxia/hypercarbia, a neurologic process is also consideration. Subjective Date/time seen: 10/13/21 09:00 S: Patient was seen and examined during the morning rounds today. He is still requiring nocturnal BiPAP treatment. During my examination, he reports headaches; mild shortness of breath with minimal effort; he denies chest pain. No abdominal pain, no nausea, no vomiting, mood stable. Review of Systems Review of Systems: All systems reviewed & are unremarkable except as noted in HPI and below (the history and physical examination.) Exam Narrative: General: Moderately ill-appearing male sitting up in bed on BiPAP. Weight: 72.4 kg. BMI: 21.6. HEENT: PERRL, EOMI. Sclerae anicteric. Conjunctiva mildly injected. Oral mucosa appears tacky through the mask. Neck: Supple. No JVD. Unable to assess for bruits given transmitted sounds from BiPAP. Respiratory: On BiPAP, tolerating it well. Diminished lung sounds throughout with faint expiratory wheezes. Cardiovascular: Regular rate and rhythm with S1-S2. Gastrointestinal: Abdomen is soft, nontender, and nondistended with positive bowel sounds. Skin: Warm and dry. No rash or lesions on limited exam. Extremities: No cyanosis, clubbing, or edema. Radial and pedal pulses intact. Negative sign. Neurological: Alert and oriented x4 after being on BiPAP for an hour. Cranial nerves 2-12 are grossly intact. Speech is a bit garbled through the mask. No facial asymmetry. Hand state patrol officer and foot pushes equal bilaterally. Noted to move upper and lower extremities. No gross focal deficits to casual conversation. Psychiatric: Appropriate mood and affect. Seems a bit disoriented with regards what happened today and how he ended up in the hospital. Objective Data Vital Signs Vital Signs: Vital Signs - 24 hr 10/12/21 12:00 10/12/21 13:41 10/12/21 13:50 Temperature 97.2 F L Pulse Rate 85 96 95 Respiratory Rate 14 18 18 Blood Pressure 96/56 L
[2021-10-13] MEDS: ENOXAPARIN 40 MG/0.4 ML SYRINGE SUB-Q (09:24)
[2021-10-13] MEDS: FLUTICASONE PROPIONATE 0.05% NA SPR 16 GM BTL (*BKC) 1 SPRAY NASAL ×2 (09:24→18:06)
[2021-10-13] MEDS: predniSONE 40 MG, predniSONE 10 MG 50 MG PO (09:25)
[2021-10-13] MEDS: CHOLECALCIFEROL 1,000 UNITS TABLET 5000 UNITS PO (09:32)
[2021-10-13] MEDS: PANTOPRAZOLE 40 MG TABLET PO (09:33)
[2021-10-13] MEDS: MIRTAZAPINE 30 MG TABLET PO (09:33)
[2021-10-13] MEDS: ASPIRIN 325 MG TABLET PO (09:33)
[2021-10-13] MEDS: SERTRALINE HCL 50 MG TABLET PO (09:33)
--- NOTE | 2021-10-13 09:53 | PCSTNOTE ---
Please refer to the Bedside Swallow Evaluation in the EMR. Please note, silent aspiration cannot be ruled out at bedside.
[2021-10-13 14:52] LABS: Alveolar/Arterial O2 Gradient 17.3 mmHg; Base Excess ABG 6.1 mEq/l (+/-2.0); Fractional Inspired Oxygen 21 %; HCO3 ABG 32.7 mEq/l (22.0-26.0); Oxygen Content ABG 16.2 %vol (16.0-22.0); Oxyhemoglobin 90.7 % THb (90.0-100.0); PCO2 ABG 56.3 mmHg (35.0-45.0); Total Hemoglobin 12.7 g/dL (12.0-18.0); pH ABG 7.382 (7.350-7.450)
[2021-10-13 14:53] LABS: Device ROOM AIR; Modified Allen's Test Pass; Site Drawn RIGHT RADIAL
--- NOTE | 2021-10-13 15:18 | PM.PNPUL ---
Progress Note: A&P Assessment and Plan (1) Acute respiratory failure with hypoxia and hypercarbia: Code(s): J96.01 - Acute respiratory failure with hypoxia; J96.02 - Acute respiratory failure with hypercapnia Status: Acute Assessment and Plan: 71-year-old man with three-month history of significant weight loss, muscle weakness with inability to walk without assistance, dysphagia presented with acute on chronic hypercapnic respiratory failure. The patient has been treated with BiPAP support with normalization of his pH on last ABG but hypercapnia persists. Patient has been receiving treatment for possible COPD exacerbation as he used to smoke for many years. Chest imaging studies including chest CT showed no evidence of significant radiographic emphysema. On physical exam the patient has muscle weakness especially proximal muscle weakness and characteristic atrophy of the 1st dorsal interossei muscles in hands bilaterally. In the supine position his abdominal excursion was significantly diminished , and the patient was breathing primarily using ribcage and accessory neck muscles. He had no orthopnea in supine position. On chest imaging studies the diaphragms were not significantly elevated. Given the patient's significant peripheral muscle weakness in conjunction with the respiratory exam findings in supine position, respiratory muscle weakness rather than COPD seems to be the underlying cause of the acute on chronic hypercapnic respiratory failure. Generalized muscle weakness, in conjunction with dysphagia and the very likely respiratory muscle weakness suggest underlying neuromuscular disease. The differential diagnosis includes polymyositis, ALS, and less likely inclusion body myositis. I ordered a series of tests for polymyositis and other inflammatory myositis. I would discontinue the steroids as there is no evidence of wheezing on physical exam I would continue with current regimen for a day or so to cover possible lower respiratory tract infection although chest CT showed no evidence of infiltrates. We will monitor arterial blood gases on a daily basis and also monitor vital capacity at the bedside. I would continue with BiPAP support at night using lower pressures at this point. I would suggest a Neurology consultation. (2) Dysphagia: Code(s): R13.10 - Dysphagia, unspecified Status: Acute (3) Muscle weakness: Code(s): M62.81 - Muscle weakness (generalized) Status: Acute Subjective Date/time seen: 10/13/21 15:18 patient presented with acute on chronic hypercapnic respiratory failure of unclear etiology. Has received treatment with BiPAP support. Respiratory status has improved somewhat. Has had history of significant weight loss over the last years and dysphagia. Chest CT was essentially unremarkable for underlying lung disease. He used to smoke but quit many years ago. Review of Systems Review of Systems: All systems reviewed & are unremarkable except as noted in HPI and below (the history and physical examination.) Exam Narrative: GENERAL APPEARANCE: Well developed, emaciated adult male, with a raspy voice in no apparent respiratory distress while sitting up in bed and breathing ambient air SKIN: Inspection of the skin reveals no rashes, ulcerations or petechiae. HEENT: Sclerae anicteric and conjunctivae pink and moist. Extraocular movements were intact and pupils were equal, round, and reactive to light. The oral mucosa, hard and soft palate, tongue and posterior pharynx were normal. NECK: Supple. There was no thyroid enlargement, and no tenderness, or masses were felt. CHEST: Normal AP diameter and normal contour without any kyphoscoliosis. LUNGS: Auscultation of the lungs revealed clear breath sounds bilaterally no wheezing CARDIAC: There was a regular rate and rhythm without any murmurs, gallops, rubs. ABDOMEN: Soft and nontender with normal bowel sounds. There was no organomega
[2021-10-13 16:22] LABS: CRP < 0.5 mg/dL (<1.0); Creatine Kinase 33 U/L (55-170)
[2021-10-13 17:07] LABS: Erythrocyte Sedimentation Rate 6 mm/hr (0-20)
--- NOTE | 2021-10-13 17:20 | PCRCNOTE ---
Daily Vital Capacity x's 3 days: 10/13/21: 2.68L (best out of 3, noseclips used.)
--- NOTE | 2021-10-13 18:33 | PC.NURSE ---
1800-report called to Lucy on 2 med.
--- NOTE | 2021-10-13 18:38 | PC.NURSE ---
1839-pt transferred in bed to room 250 with tech and packaging clerk.
--- NOTE | 2021-10-13 18:59 | PC.NURSE ---
This patient, Michelet Aburto Sr., was received from [facility] on 10/13/21 at 1850. Patient/family oriented to unit policies and routines
[2021-10-13] MEDS: TAMSULOSIN HCL 0.4 MG CAPSULE PO (20:13)
[2021-10-14] VITALS (17 sets, daily range): BP systolic 122–155; BP diastolic 66–84; PULSE 78–96; RESP 17–18; TEMP 36.3–37.1; O2SAT 91–98
[2021-10-14] MEDS: ALBUTEROL SULFATE NEB 2.5 MG/0.5 ML INH 5 MG INHALATION ×4 (01:47→20:30)
[2021-10-14] MEDS: IPRATROPIUM BR 0.02% INH SOLN 0.5 MG/2.5 ML VIAL INHALATION ×4 (01:47→20:30)
[2021-10-14 07:26] LABS: Glucose Point of Care 84 mg/dl (65-105)
--- NOTE | 2021-10-14 07:44 | PM.IMPN ---
Progress Note: A&P Assessment and Plan (1) Encephalopathy: Code(s): G93.40 - Encephalopathy, unspecified Status: Acute Assessment and Plan: Acute metabolic encephalopathy. Additional Plan 1) Acute respiratory failure with hypoxia and hypercarbia: Code(s): J96.01 - Acute respiratory failure with hypoxia; J96.02 - Acute respiratory failure with hypercapnia Status: Acute Assessment and Plan: Patient is currently requiring BiPAP overnight. Patient is currently being evaluated for COPD and apnea/hypopnea. Pulmonary was consulted.The differential diagnosis includes polymyositis, ALS, and less likely inclusion body myositis. Continue noninvasive ventilatory support night. For blood cultures. Daily vital capacity and ABG. (2) Encephalopathy: Code(s): G93.40 - Encephalopathy, unspecified Status: Acute Assessment and Plan: Resolved. It was thought to be secondary to hypercarbia, improved since he has been started on BiPAP. Now A&O x4. (3) COPD exacerbation: Code(s): J44.1 - Chronic obstructive pulmonary disease with (acute) exacerbation Status: Acute Assessment and Plan: Continue scheduled bronchodilators and methylprednisolone. (4) Carotid artery disease: Code(s): I77.9 - Disorder of arteries and arterioles, unspecified Status: Acute Assessment and Plan: Status post left carotid endarterectomy with known 100% occlusion on right. Brain CT unremarkable. (5) Depression: Code(s): F32.A - Depression, unspecified Status: Acute Assessment and Plan: May be playing a role in his decline recently (spends most of this time the couch, weight loss). Patient denies harmful thoughts. (6) Weight loss: Code(s): R63.4 - Abnormal weight loss Status: Acute Assessment and Plan: Reportedly he has had in nearly 60 lb unintentional weight loss last year. Extensive workup has been unrevealing. Swallowing evaluation was done with level 6 diet soft and bite size. (7) Dysphagia: Code(s): R13.10 - Dysphagia, unspecified Status: Acute Assessment and Plan: Recently completed speech therapy. Patient currently tolerating a regular diet. Currently on level 6 soft and bite size diet. Time Spent With Patient Time with patient: less than 15 minutes Subjective Date/time seen: 10/14/21 07:44 S: Patient was seen and examined at the bedside. He was eating his breakfast. He denied any active complaints. He is anxious to return home. Review of Systems Review of Systems: All systems reviewed & are unremarkable except as noted in HPI and below (the history and physical examination.) Exam Narrative: General: Moderately ill-appearing male sitting up in bed on BiPAP. Weight: 72.4 kg. BMI: 21.6. HEENT: PERRL, EOMI. Sclerae anicteric. Conjunctiva mildly injected. Moist mucous membranes Neck: Supple. No JVD. No bruit. Respiratory: Bilateral air entry is present. No wheezing crackles or rhonchi.. Cardiovascular: Regular rate and rhythm with S1-S2. Gastrointestinal: Abdomen is soft, nontender, and nondistended with positive bowel sounds. Skin: Warm and dry. No rash or lesions on limited exam. Extremities: No cyanosis, clubbing, or edema. Radial and pedal pulses intact. Negative sign. Neurological: Alert and oriented x4. Cranial nerves 2-12 are grossly intact. Speech is a bit garbled through the mask. No facial asymmetry. Hand ream cutter and foot pushes equal bilaterally. Noted to move upper and lower extremities. No gross focal deficits to casual conversation. Psychiatric: Appropriate mood and affect. Patient is awake alert and oriented. Objective Data Vital Signs Vital Signs: Vital Signs - 24 hr 10/13/21 08:00 10/13/21 08:45 10/13/21 08:47 Temperature 98.6 F Pulse Rate 98 72 72 Respiratory Rate 16 22 H Blood Pressure 123/58 L Pulse Oximetry 98 95 10/13/21 10:00 10/13/21 12:00 10/13/21
[2021-10-14] MEDS: FLUTICASONE/SALMETEROL 115-21 MCG INHALER 1 PUFF 2 PUFF INHALATION ×2 (08:40→20:34)
[2021-10-14 08:57] LABS: Alveolar/Arterial O2 Gradient 10.2 mmHg; Base Excess ABG 8.1 mEq/l (+/-2.0); Device ROOM AIR; Fractional Inspired Oxygen 21 %; HCO3 ABG 33.4 mEq/l (22.0-26.0); Modified Allen's Test Pass; Oxygen Content ABG 16.6 %vol (16.0-22.0); Oxygen Saturation ABG 96.1 % (95.0-100.0); Oxyhemoglobin 95.1 % THb (90.0-100.0); PCO2 ABG 49.6 mmHg (35.0-45.0); PO2 ABG 80.1 mmHg (80.0-100.0); PO2 FiO2 Ratio Arterial Blood 3.81 %; Site Drawn RIGHT RADIAL; Total Hemoglobin 12.4 g/dL (12.0-18.0); pH ABG 7.446 (7.350-7.450)
--- NOTE | 2021-10-14 09:09 | PM.PNPUL ---
Progress Note: A&P Assessment and Plan (1) Acute respiratory failure with hypoxia and hypercarbia: Code(s): J96.01 - Acute respiratory failure with hypoxia; J96.02 - Acute respiratory failure with hypercapnia Status: Acute Assessment and Plan: 71-year-old man with three-month history of significant weight loss, muscle weakness with inability to walk without assistance, dysphagia presented with acute on chronic hypercapnic respiratory failure. The patient has been treated with BiPAP support with normalization of his pH on last ABG but hypercapnia persists. On physical exam the patient has muscle weakness especially proximal muscle weakness and characteristic atrophy of the 1st dorsal interossei muscles in hands bilaterally. In the supine position his abdominal wall displacement was significantly diminished , and the patient was breathing primarily using ribcage and accessory neck muscles. Patient's vital capacity was greater than 2.5 L. patient will need pulmonary function testing as an outpatient. Apnea link tonight on room air and no BIPAP support. Preliminary results for underlying inflammatory myositis showed normal CK which makes polymyositis less likely. ALS is a more likely possibility now especially with bulbar symptoms and significant weight loss. Await Neurology consultation. (2) Dysphagia: Code(s): R13.10 - Dysphagia, unspecified Status: Acute (3) Muscle weakness: Code(s): M62.81 - Muscle weakness (generalized) Status: Acute Subjective Date/time seen: 10/14/21 09:09 Patient has no new respiratory symptoms. Remains fully awake. Used BiPAP support last night. Had vital capacity measured at bedside. Review of Systems Review of Systems: All systems reviewed & are unremarkable except as noted in HPI and below (the history and physical examination.) Exam Narrative: GENERAL APPEARANCE: Well developed, emaciated adult male, with a raspy voice in no apparent respiratory distress while sitting up in bed and breathing ambient air SKIN: Inspection of the skin reveals no rashes, ulcerations or petechiae. HEENT: Sclerae anicteric and conjunctivae pink and moist. Extraocular movements were intact and pupils were equal, round, and reactive to light. The oral mucosa, hard and soft palate, tongue and posterior pharynx were normal. NECK: Supple. There was no thyroid enlargement, and no tenderness, or masses were felt. CHEST: Normal AP diameter and normal contour without any kyphoscoliosis. LUNGS: Auscultation of the lungs revealed clear breath sounds bilaterally no wheezing CARDIAC: There was a regular rate and rhythm without any murmurs, gallops, rubs. ABDOMEN: Soft and nontender with normal bowel sounds. There was no organomegaly. in the supine position the patient had significant decrease in abdominal wall excursion with use of ribcage muscles and neck muscles. LYMPH NODES: No lymphadenopathy was appreciated in the neck. EXTREMITIES: No cyanosis, clubbing or edema. atrophy of the 1st dorsal interosseous muscles bilaterally. NEUROLOGIC: Alert and oriented x 3. Normal affect. Objective Data Vital Signs Vital Signs: Vital Signs - 24 hr 10/13/21 10:00 10/13/21 12:00 10/13/21 14:00 Temperature 36.8 C Pulse Rate 110 H 107 H 103 H Respiratory Rate 18 Blood Pressure 150/59 H Pulse Oximetry 94 10/13/21 14:47 10/13/21 14:57 10/13/21 16:00 Temperature 37.2 C Pulse Rate 99 90 105 H Respiratory Rate 18 18 18 Blood Pressure 150/61 H Pulse Oximetry 92 10/13/21 18:00 10/13/21 20:00 10/13/21 21:25 Temperature 36.7 C Pulse Rate 108 H 99 87 Respiratory Rate 17 18 Blood Pressure 125/75 Pulse Oximetry 96 10/13/21 21:35 10/13/21 21:41 10/13/21 23:06 Temperature Pulse Rate 88 81 Respiratory Rate 18 21 H Blood Pressure Pulse Oximetry 95 96 10/14/21 00:00 10/14/21 01:51 10/14/21 01:55 Temperature 36.6 C Pulse Rate 80 83 84 Respiratory Rate 1
[2021-10-14] MEDS: ASPIRIN 325 MG TABLET PO (09:24)
[2021-10-14] MEDS: MIRTAZAPINE 30 MG TABLET PO (09:24)
[2021-10-14] MEDS: PANTOPRAZOLE 40 MG TABLET PO (09:24)
[2021-10-14] MEDS: SERTRALINE HCL 50 MG TABLET PO (09:24)
[2021-10-14] MEDS: CHOLECALCIFEROL 1,000 UNITS TABLET 5000 UNITS PO (09:25)
[2021-10-14] MEDS: ENOXAPARIN 40 MG/0.4 ML SYRINGE SUB-Q (09:26)
[2021-10-14] MEDS: FLUTICASONE PROPIONATE 0.05% NA SPR 16 GM BTL (*BKC) 1 SPRAY NASAL ×2 (09:27→16:36)
[2021-10-14 09:47] LABS: Hematocrit 35.7 % (42.0-52.0); Hemoglobin 11.3 g/dL (14.0-18.0); Mean Corpuscular HGB Conc 31.7 g/dl (32-36); Mean Corpuscular Hemoglobin 28.4 pg (26-34); Mean Corpuscular Volume 89.7 fl (80-100); Mean Platelet Volume 9.7 fl (7.4-10.4); Platelet Count Result 238 k/mm3 (150-375); Red Blood Count 3.98 M/mm3 (4.6-6.20); Red Cell Distribution Width 13.8 % (11.5-14.5); White Blood Count 11.8 K/mm3 (4.5-10.0)
--- NOTE | 2021-10-14 12:40 | WPDNEURCNPN ---
Assessment and Plan Additional Plan 1. Encephalopathy 2. Acute respiratory failure with underlying COPD 3. Status post left carotid endarterectomy 5. Depression 6. Generalized weakness secondary to underlying problem Consult date: 10/14/21 HPI: Michelet Aburto is a 71 year old male admitted to the hospital for the complaints of change in the mental status with ongoing diagnosis of 1. COPD 2. Sleep apnea 3. Hypertension 4. GERD 5. Depression 6. Benign prostatic hyperplasia. Patient presented to emergency department via EMS from home for the complaints of change in the mental status and at the time of initial evaluation he was a bit confused on BiPAP as per the information available over the last 72 hours she was less interactive not thinking straight in the morning his was unable to arouse him from sleep to call 911 on EMS arrival his SpO2 was in the 80s and he was placed on nasal cannula ABG done on arrival showed pCO2 of greater than 90 and he was started on BiPAP over the subsequent our he became progressively more awake and oriented patient had been diagnosed to have COPD but has never had a formal workup been receiving inhaler at home at times gets short of breath but she does not think that he was going through COPD though over the last several months has essentially lived on the cough getting up only to use the bathroom and eats his meals then sleeps on the couch with no energy excessively fatigued and 60 lb weight loss probably he has undergone CT of the chest abdomen pelvis which were unremarkable swallowing test was done couple of months ago which was for the dysphagia he was given the speech therapy but he has not use CPAP recently has not had cold symptoms past history is consistent with benign prostatic hyperplasia COPD depression with anxiety GERD tobacco use right-sided carotid artery disease and 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 Completed 10 sessions with speech therapist. Gastroesophageal reflux disease History of tobacco abuse Hyperlipidemia Nocturia Right-sided carotid artery disease 100% occlusion of the right coronary artery on carotid Doppler study 08/08/2021 with less than 50% on left. Seasonal allergic rhinitis Weight loss Nearly 60 lb unintentional weight loss in 2020. CT of the brain, chest, abdomen, and pelvis were unremarkable in August and September 2021. Upper and lower endoscopies also reportedly unremarkable in fall 2020. Has had normal PSA. Surgical History Surgical History History of cardiac catheterization Family History Family History Sibling Colon cancer Father Hypertension Father Family history of premature coronary heart disease Sibling Family history of lupus erythematosus Social History Social History Social History: Surrogate decision maker: Yumikosmith Aburto, spouse. They have 4 adult children. Code status: Do not resuscitate. Smoking packs per day: 1 Smoking cigarettes per day: 20.0 Years smoked: 50 Smoking pack-years: 50.00 Smoking status: Former smoker Tobacco type: cigarettes Second hand tobacco smoke exposure: Yes Smoking end date: 08/23/06 Alcohol intake: former Drinks per week: 2 Substance use: never Substance use type: does not use Additional living arrangements comments: The patient lives with his in [facility]
[2021-10-14 13:56] LABS: Creatine Kinase 38 U/L (55-170)
[2021-10-14] MEDS: MEGESTROL ACETATE (*CHEMO) 20 MG TABLET PO (14:21)
--- NOTE | 2021-10-14 15:08 | PCRCNOTE ---
Daily Vital Capactiy measured, 10/14/21. measuring at 3.15 (best of 3 attempts)
--- NOTE | 2021-10-14 16:00 | PC.NURSE ---
On 09/24/21, the student, Karen Delgado, provided care and completed [facility] documentation on this patient. I have reviewed the student's documentation and agree with the findings
[2021-10-14 18:05] LABS: Vancomycin Trough < 5.0 ug/mL (10.0-20.0)
[2021-10-14] MEDS: TAMSULOSIN HCL 0.4 MG CAPSULE PO (20:57)
[2021-10-15] VITALS (14 sets, daily range): BP systolic 119–179; BP diastolic 57–94; PULSE 80–100; RESP 16–90; TEMP 36.3–37; O2SAT 93–98
[2021-10-15 04:35] LABS: Alveolar/Arterial O2 Gradient 79.6 mmHg; Base Excess ABG 10.5 mEq/l (+/-2.0); Device ROOM AIR; Fractional Inspired Oxygen 21 %; HCO3 ABG 36.5 mEq/l (22.0-26.0); Modified Allen's Test Pass; Oxygen Content ABG 16.3 %vol (16.0-22.0); Oxygen Saturation ABG 92.6 % (95.0-100.0); Oxyhemoglobin 91.8 % THb (90.0-100.0); PCO2 ABG 54.9 mmHg (35.0-45.0); PO2 ABG 63.5 mmHg (80.0-100.0); PO2 FiO2 Ratio Arterial Blood 3.02 %; Site Drawn RIGHT RADIAL; Total Hemoglobin 12.6 g/dL (12.0-18.0); pH ABG 7.441 (7.350-7.450)
--- NOTE | 2021-10-15 04:55 | PCRCNOTE ---
RT found Pt. with apnea Link taken off during the time of study, only half of the test was recorded
[2021-10-15] MEDS: ALBUTEROL SULFATE NEB 2.5 MG/0.5 ML INH 5 MG INHALATION ×3 (08:44→19:40)
[2021-10-15] MEDS: FLUTICASONE/SALMETEROL 115-21 MCG INHALER 1 PUFF 2 PUFF INHALATION ×2 (08:44→19:40)
[2021-10-15] MEDS: IPRATROPIUM BR 0.02% INH SOLN 0.5 MG/2.5 ML VIAL INHALATION ×3 (08:44→19:40)
[2021-10-15] MEDS: ENOXAPARIN 40 MG/0.4 ML SYRINGE SUB-Q (09:24)
[2021-10-15] MEDS: FLUTICASONE PROPIONATE 0.05% NA SPR 16 GM BTL (*BKC) 1 SPRAY NASAL ×2 (09:24→16:47)
[2021-10-15] MEDS: CHOLECALCIFEROL 1,000 UNITS TABLET 5000 UNITS PO (09:24)
[2021-10-15] MEDS: SERTRALINE HCL 50 MG TABLET PO (09:25)
[2021-10-15] MEDS: PANTOPRAZOLE 40 MG TABLET PO (09:25)
[2021-10-15] MEDS: MEGESTROL ACETATE (*CHEMO) 20 MG TABLET PO (09:25)
[2021-10-15] MEDS: MIRTAZAPINE 30 MG TABLET PO (09:25)
[2021-10-15] MEDS: ASPIRIN 325 MG TABLET PO (09:25)
--- NOTE | 2021-10-15 10:08 | PM.IMPN ---
Progress Note: A&P Assessment and Plan (1) Encephalopathy: Code(s): G93.40 - Encephalopathy, unspecified Status: Acute Assessment and Plan: Acute metabolic encephalopathy. Additional Plan 1) Acute respiratory failure with hypoxia and hypercarbia: Code(s): J96.01 - Acute respiratory failure with hypoxia; J96.02 - Acute respiratory failure with hypercapnia Status: Acute Assessment and Plan: Patient is currently requiring BiPAP overnight. Patient is currently being evaluated for COPD and apnea/hypopnea. Pulmonary was consulted.The differential diagnosis includes polymyositis, ALS, and less likely inclusion body myositis. Continue noninvasive ventilatory support night. We will refer to neurodegenerative disorder center as an outpatient. (2) Encephalopathy: Code(s): G93.40 - Encephalopathy, unspecified Status: Acute Assessment and Plan: Resolved. It was thought to be secondary to hypercarbia, improved since he has been started on BiPAP. Now A&O x4. (3) COPD exacerbation: Code(s): J44.1 - Chronic obstructive pulmonary disease with (acute) exacerbation Status: Acute Assessment and Plan: Continue scheduled bronchodilators and methylprednisolone. (4) Carotid artery disease: Code(s): I77.9 - Disorder of arteries and arterioles, unspecified Status: Acute Assessment and Plan: Status post left carotid endarterectomy with known 100% occlusion on right. Brain CT unremarkable. (5) Depression: Code(s): F32.A - Depression, unspecified Status: Acute Assessment and Plan: May be playing a role in his decline recently (spends most of this time the couch, weight loss). Patient denies harmful thoughts. (6) Weight loss: Code(s): R63.4 - Abnormal weight loss Status: Acute Assessment and Plan: Reportedly he has had in nearly 60 lb unintentional weight loss last year. Extensive workup has been unrevealing. Swallowing evaluation was done with level 6 diet soft and bite size. (7) Dysphagia: Code(s): R13.10 - Dysphagia, unspecified Status: Acute Assessment and Plan: Recently completed speech therapy. Patient currently tolerating a regular diet. Currently on level 6 soft and bite size diet. Subjective Date/time seen: 10/15/21 10:00 S: Patient was seen examined at the bedside. He denies any complaints. Bulbar symptoms persist. Currently being evaluated by Pulmonary and Neurology. Review of Systems Review of Systems: All systems reviewed & are unremarkable except as noted in HPI and below (the history and physical examination.) Exam Narrative: General: Moderately ill-appearing male sitting up in bed on BiPAP. Weight: 72.4 kg. BMI: 21.6. HEENT: PERRL, EOMI. Sclerae anicteric. Conjunctiva mildly injected. Moist mucous membranes Neck: Supple. No JVD. No bruit. Respiratory: Bilateral air entry is present. No wheezing crackles or rhonchi.. Cardiovascular: Regular rate and rhythm with S1-S2. Gastrointestinal: Abdomen is soft, nontender, and nondistended with positive bowel sounds. Skin: Warm and dry. No rash or lesions on limited exam. Extremities: No cyanosis, clubbing, or edema. Radial and pedal pulses intact. Negative sign. Neurological: Alert and oriented x4. Cranial nerves 2-12 are grossly intact. Speech is a bit garbled through the mask. No facial asymmetry. Hand family development extension specialist and foot pushes equal bilaterally. Noted to move upper and lower extremities. No gross focal deficits to casual conversation. Psychiatric: Appropriate mood and affect. Patient is awake alert and oriented. Objective Data Vital Signs Vital Signs: Vital Signs - 24 hr 10/14/21 20:00 10/14/21 20:31 10/14/21 20:32 Temperature 98.8 F Pulse Rate 90 86 Respiratory Rate 18 18 Blood Pressure 134/66 Pulse Oximetry 96 96 10/14/21 20:39 10/15/21 00:00 10/15/21 04:00 Temperature 98.6 F 98.6 F Puls
--- NOTE | 2021-10-15 10:32 | PCRCNOTE ---
Pt did one time NIF at 33
--- NOTE | 2021-10-15 10:33 | PCRCNOTE ---
Pt did Daily Vital Capacity for 3 days with today being the last day. 10/15/21: 3.26 (best out of 3 with nose clips used)
--- NOTE | 2021-10-15 11:20 | PM.PNPUL ---
Progress Note: A&P Assessment and Plan (1) Acute respiratory failure with hypoxia and hypercarbia: Code(s): J96.01 - Acute respiratory failure with hypoxia; J96.02 - Acute respiratory failure with hypercapnia Status: Acute Assessment and Plan: 71-year-old man with three-month history of significant weight loss, muscle weakness with inability to walk without assistance, dysphagia presented with acute on chronic hypercapnic respiratory failure. The patient has been treated with BiPAP support with normalization of his pH on last ABG but hypercapnia persists. On physical exam the patient has muscle weakness especially proximal muscle weakness and characteristic atrophy of the 1st dorsal interossei muscles in hands bilaterally. In the supine position his abdominal wall displacement was significantly diminished , and the patient was breathing primarily using ribcage and accessory neck muscles. Patient's vital capacity has been greater than 2.5 L on consecutive 3 day measurements. Negative inspiratory force measured by Respiratory therapy at bedside today was very low at 35 cm H2O. Apnea link last night showed oxyhemoglobin desaturation, with saturation less than 88% lasting 12 minutes or 10%. The patient had mostly hypopneas, with an AHI of 36.2. The average oxyhemoglobin saturation was 92%. these findings suggest possible respiratory muscle weakness which, by itself or in conjunction with COPD, can explain chronic hypercapnic respiratory failure. cause of underlying respiratory muscle weakness unknown. plan is as follows. from respiratory standpoint the patient can be discharged home in am. I would suggest to start the patient on empiric COPD treatment with Anoro inhaler 1 puff daily as well as short-acting bronchodilator for p.r.n. use, pending spirometry for COPD evaluation. The patient will return to Pulmonary Clinic next week for outpatient spirometry and re-evaluation. He should be evaluated for home oxygen especially with evidence of oxyhemoglobin desaturation on apnea link. The case was discussed with the hospitalist. (2) Dysphagia: Code(s): R13.10 - Dysphagia, unspecified Status: Acute (3) Muscle weakness: Code(s): M62.81 - Muscle weakness (generalized) Status: Acute Subjective Date/time seen: 10/15/21 11:20 Patient has no new respiratory symptoms. Remaining on room air. Had apnea link measurement last night. Also measurement of a negative expiratory force this a.m. Review of Systems Review of Systems: All systems reviewed & are unremarkable except as noted in HPI and below Exam Narrative: GENERAL APPEARANCE: Well developed, emaciated adult male, with a raspy voice in no apparent respiratory distress while sitting up in bed and breathing ambient air SKIN: Inspection of the skin reveals no rashes, ulcerations or petechiae. HEENT: Sclerae anicteric and conjunctivae pink and moist. Extraocular movements were intact and pupils were equal, round, and reactive to light. The oral mucosa, hard and soft palate, tongue and posterior pharynx were normal. NECK: Supple. There was no thyroid enlargement, and no tenderness, or masses were felt. CHEST: Normal AP diameter and normal contour without any kyphoscoliosis. LUNGS: Auscultation of the lungs revealed clear breath sounds bilaterally no wheezing CARDIAC: There was a regular rate and rhythm without any murmurs, gallops, rubs. ABDOMEN: Soft and nontender with normal bowel sounds. There was no organomegaly. in the supine position the patient had significant decrease in abdominal wall displacement, primarily using ribcage muscles and neck muscles. LYMPH NODES: No lymphadenopathy was appreciated in the neck. EXTREMITIES: No cyanosis, clubbing or edema. atrophy of the 1st dorsal interosseous muscles bilaterally. NEUROLOGIC: Alert and oriented x 3. Normal affect. Objective Data Vital Signs Vital Signs: Vital Signs - 24 hr 10/14/21 12:00 02
[2021-10-15] MEDS: TAMSULOSIN HCL 0.4 MG CAPSULE PO (20:12)
--- NOTE | 2021-10-15 22:13 | PCRCNOTE ---
Pt did not use BiPAP tonight. He is on an overnight sleep study on room air.
[2021-10-16] VITALS (9 sets, daily range): BP systolic 141–154; BP diastolic 69–77; PULSE 77–97; RESP 17–20; TEMP 36.3–37.1; O2SAT 95–98
--- NOTE | 2021-10-16 01:27 | PCRCNOTE ---
Pt did not receive nebulizer treatment ordered for 10/16/21 at 02:00 because he was doing an overnight sleep study and was not to be disturbed.
[2021-10-16 04:37] LABS: Aldolase 8.3 U/L (<=8.1)
--- NOTE | 2021-10-16 05:19 | PCRCNOTE ---
Apnea link ordered for 10/15/21 was placed on pt and started at 22:10. At approximately 01:20 on 10/16, pt was found to have turned off the apnea link and disconnected the wires. The band was still wrapped around his chest, the nasal cannula in his nose, and the finger probe on his finger. All wires were reconnected and the machine turned back on. The only data recorded was from the second portion of the study after the machine was turned back on. Study was run and scanned into chart.
[2021-10-16 05:56] LABS: Basophils Percent Auto 0.2 % (0.2-1.2); Eosinophils Absolute Auto 0.2 K/mm3 (0-0.3); Eosinophils Percent Auto 1.7 % (0-4.4); Hematocrit 38.5 % (42.0-52.0); Hemoglobin 12.6 g/dL (14.0-18.0); Immature Granulocyte Absolute 0.02 K/mm3 (0.00-0.031); Immature Granulocyte Percent A 0.2 % (0-0.5); Lymphocytes Absolute Auto 1.95 K/mm3 (0.9-3.2); Lymphocytes Percent Auto 19.8 % (18.3-44.2); Mean Corpuscular HGB Conc 32.7 g/dl (32-36); Mean Corpuscular Hemoglobin 28.4 pg (26-34); Mean Corpuscular Volume 86.7 fl (80-100); Mean Platelet Volume 9.5 fl (7.4-10.4); Monocytes Absolute Auto 0.6 K/mm3 (0.1-0.6); Monocytes Percent Auto 6.1 % (2.6-8.5); Neutrophils Absolute Auto 7.1 K/mm3 (1.3-6.7); Platelet Count Result 244 k/mm3 (150-375); Red Blood Count 4.44 M/mm3 (4.6-6.20); Red Cell Distribution Width 13.4 % (11.5-14.5); White Blood Count 9.8 K/mm3 (4.5-10.0)
[2021-10-16 06:59] LABS: Anion Gap 3 mmol/L (8-16); Blood Urea Nitrogen 13 mg/dL (9-20); Calcium 9.5 mg/dL (8.4-10.2); Carbon Dioxide 39 mmol/L (22-30); Chloride 97 mmol/L (98-107); Estimated CRCL calculation 124 ml/min; Estimated Glomerular Filt Rate > 60; Glucose 104 mg/dL (65-110); Potassium 3.7 mmol/L (3.4-5.0); Sodium 139 mmol/L (137-145); Vancomycin Trough 12.8 ug/mL (10.0-20.0)
[2021-10-16 07:10] LABS: Vitamin D 25 Hydroxy 73.9 ng/mL
[2021-10-16] MEDS: FLUTICASONE PROPIONATE 0.05% NA SPR 16 GM BTL (*BKC) 1 SPRAY NASAL (08:19)
[2021-10-16] MEDS: ENOXAPARIN 40 MG/0.4 ML SYRINGE SUB-Q (08:19)
[2021-10-16] MEDS: CHOLECALCIFEROL 1,000 UNITS TABLET 5000 UNITS PO (08:19)
[2021-10-16] MEDS: ASPIRIN 325 MG TABLET PO (08:19)
[2021-10-16] MEDS: SERTRALINE HCL 50 MG TABLET PO (08:20)
[2021-10-16] MEDS: MEGESTROL ACETATE (*CHEMO) 20 MG TABLET PO (08:20)
[2021-10-16] MEDS: MIRTAZAPINE 30 MG TABLET PO (08:20)
[2021-10-16] MEDS: PANTOPRAZOLE 40 MG TABLET PO (08:20)
[2021-10-16] MEDS: FLUTICASONE/SALMETEROL 115-21 MCG INHALER 1 PUFF 2 PUFF INHALATION (08:30)
[2021-10-16] MEDS: ALBUTEROL SULFATE NEB 2.5 MG/0.5 ML INH 5 MG INHALATION (08:30)
[2021-10-16] MEDS: IPRATROPIUM BR 0.02% INH SOLN 0.5 MG/2.5 ML VIAL INHALATION (08:31)
--- NOTE | 2021-10-16 09:29 | PCPTNOTE ---
Patient refused to do therapy at this time due to feeling tired and states he will be going home today. Patient was educated on the benefits of therapy however continued to refuse. Nursing confirmed patient is to be discharged this date.
[2021-10-16 09:51] LABS: Alveolar/Arterial O2 Gradient 12.8 mmHg; Fractional Inspired Oxygen 21 %; HCO3 ABG 35.8 mEq/l (22.0-26.0); Oxygen Content ABG 17.9 %vol (16.0-22.0); Oxygen Saturation ABG 93.1 % (95.0-100.0); Oxyhemoglobin 91.5 % THb (90.0-100.0); PCO2 ABG 58.1 mmHg (35.0-45.0); PO2 ABG 67.4 mmHg (80.0-100.0); PO2 FiO2 Ratio Arterial Blood 3.21 %; Total Hemoglobin 13.9 g/dL (12.0-18.0); pH ABG 7.407 (7.350-7.450)
[2021-10-16 09:53] LABS: Device ROOM AIR; Modified Allen's Test Pass; Site Drawn RIGHT RADIAL
[2021-10-16 11:00] LABS: SS-A <1.0; SS-B <1.0
--- NOTE | 2021-10-16 11:12 | HOMEO2EVAL ---
Evaluation was performed at [facility] Home Oxygen Evaluation RC: Home Oxygen (O2) Evaluation Start: 10/15/21 17:53 Freq: ONCE Status: Active Protocol: RPE Activity Type Activity Date Activity User E-Sign Co-Sign Detail Recorded Client Recorded Date Recorded By Document 10/16/21 10:45 [id number] [email or web address] 10/16/21 11:12 AWA Document 10/16/21 10:50 [email or web address] [email or web address] 10/16/21 11:12 AWA Document 10/16/21 11:00 [email or web address] [email or web address] 10/16/21 11:12 AWA 10/16/21 10/16/21 10/16/21 10:45 10:50 11:00 Home O2 Evaluation Test Phase Resting Exercise Resting Oxygen Delivery Room Air Room Air Room Air Pulse Oximetry (90-100 %) 95 97 96 Pulse Rate (60-100 beats/min) 77 97 86 Home Oxygen Evaluation Comments NO HOME O2 NEEDED Treatment Charges O2 Evaluation - Inpatient
--- NOTE | 2021-10-16 11:12 | PCRCNOTE ---
HOME O2 EVAL COMPLETED, NO HOME O2 NEEDED.
[2021-10-16 12:09] LABS: ANCA Screen Negative (Negative)
--- NOTE | 2021-10-16 13:11 | PM.DS ---
DS: Admitting Diagnosis Discharge Date 10/16/2021 Admitting Diagnosis (1) Acute respiratory failure with hypoxia and hypercarbia: (2) Encephalopathy: (3) COPD exacerbation: (4) Carotid artery disease: (5) Depression: (6) Weight loss: (7) Dysphagia: DS: Discharge Diagnosis Discharge Diagnosis (1) Encephalopathy: Code(s): G93.40 - Encephalopathy, unspecified Status: Acute Assessment and Plan: Acute metabolic encephalopathy.(1) Acute respiratory failure with hypoxia and hypercarbia: Code(s): J96.01 - Acute respiratory failure with hypoxia; J96.02 - Acute respiratory failure with hypercapnia Status: Acute Assessment and Plan: Patient is currently on BiPAP with improvement his blood gases. He will remain on BiPAP overnight. I will ask Dr. Avina to see him in consultation as he needs close follow-up and a formal outpatient work with regards to his COPD. (2) Encephalopathy: Code(s): G93.40 - Encephalopathy, unspecified Status: Acute Assessment and Plan: Secondary to hypercarbia, improved since he has been started on BiPAP. Now A&O x4. (3) COPD exacerbation: Code(s): J44.1 - Chronic obstructive pulmonary disease with (acute) exacerbation Status: Acute Assessment and Plan: Continue scheduled bronchodilators and methylprednisolone. (4) Carotid artery disease: Code(s): I77.9 - Disorder of arteries and arterioles, unspecified Status: Acute Assessment and Plan: Status post left carotid endarterectomy with known 100% occlusion on right. Brain CT unremarkable. (5) Depression: Code(s): F32.A - Depression, unspecified Status: Acute Assessment and Plan: May be playing a role in his decline recently (spends most of this time the couch, weight loss). Patient denies harmful thoughts. (6) Weight loss: Code(s): R63.4 - Abnormal weight loss Status: Acute Assessment and Plan: Reportedly he has had in nearly 60 lb unintentional weight loss last year. Extensive workup has been unrevealing. Is very possible that he may not be taking in his many calories as his thinks that he is. Given recent issues with dysphagia that could also be causing him to take and less calories. His COPD certainly could be causing some weight loss depending on his work breathing. Depression may be playing a factor as well. (7) Dysphagia: Code(s): R13.10 - Dysphagia, unspecified Status: Acute Assessment and Plan: Recently completed speech therapy. Swallow study showed laryngeal penetration without aspiration. With dysphagia, possible dysarthria (garbled speech on exam though he is still a bit confused and on BiPAP), and hypoxia/hypercarbia, a neurologic process is also consideration. DS: Summary Hospital Course Reason for hospitalization: Altered mental status. Hospital Course: Please refer to admission H and P. Briefly, this is a 71-year-old male with COPD, sleep apnea, hypertension, GERD, depression, and benign prostatic hyperplasia who presented to the emergency department via EMS from home for evaluation of altered mental status. He is currently a bit confused and on BiPAP in thus a majority of the following is obtained via a review of his electronic medical records as well as discussions with his . Over the past 3 days or so he has been less interactive and ?not thinking straight.? This morning his was unable to arouse him from sleep and she called 911. On EMS arrival his SpO2 was in the 80s and he was placed on nasal cannula. ABG done on arrival showed a pCO2 greater than 90 and he has been started on a BiPAP. Over the last hour so he has become progressively more awake and oriented. Patient's reports that he was diagnosed with COPD but he has never had a formal workup and he is on no inhalers at home. She goes on to say that he has ?no symptoms? to suggest that he has underlying COPD and she sa
[2021-10-16 13:25] LABS: Aldolase 12.3 U/L (<=8.1)
== END 2021-10-16 14:00 | disposition home health service (06) | DRG 189 ==
LOC: ANHED 16:54 → ANHIMU 10-13 16:01 → ANH2MED 10-14 07:32 → ANHIMU 10-17 11:14
PROVIDERS: Emergency Medicine; Internal Medicine; Internal Medicine Critical Care Medicine; Internal Medicine Pulmonary Disease; Physician Assistant; Psychiatry & Neurology Neurology; Admitting Provider Internal Medicine; Emergency Provider Emergency Medicine; PCP Family Medicine; Visit Provider Internal Medicine
DX: J96.01 Acute respiratory failure with hypoxia (principal); G93.41 Metabolic encephalopathy; J44.1 Chronic obstructive pulmonary disease with (acute) exacerbation; E87.2 Acidosis; J96.22 Acute and chronic respiratory failure with hypercapnia; Z20.822 Contact with and (suspected) exposure to COVID-19; Z87.891 Personal history of nicotine dependence; E78.5 Hyperlipidemia, unspecified; R35.1 Nocturia; R13.10 Dysphagia, unspecified; F41.8 Other specified anxiety disorders; N40.1 Benign prostatic hyperplasia with lower urinary tract symptoms; K21.9 Gastro-esophageal reflux disease without esophagitis; Z79.82 Long term (current) use of aspirin; Z79.899 Other long term (current) drug therapy; Z88.6 Allergy status to analgesic agent; R63.4 Abnormal weight loss; M62.81 Muscle weakness (generalized); I65.21 Occlusion and stenosis of right carotid artery; Z82.49 Family history of ischemic heart disease and other diseases of the circulatory system
CPT/HCPCS: 36415; 36600; 51702; 70450; 71045; 71260; 74177; 80048; 80053; 80202; 81001; 82085; 82140; 82306; 82375; 82550; 82607; 82805; 82948; 83050; 83605; 83735; 84134; 84439; 84443; 84480; 85025; 85027; 85610; 85652; 85730; 86036; 86140; 86235; 86331; 86606; 86609; 87040; 87147; 87181; 87186; 87426; 92610; 93005; 93306; 94002; 94003; 94618; 94640; 94762; 96361; 96365; 96366; 96375; 97110; 97116; 97162; 97165; 97535; 99285; A9270; C9803; G0378; J0131; J0456; J0696; J1650; J2930; J3370; J7030; J7040; J7512; Q9967; U0003; U0005

== ENCOUNTER 2022-01-02 09:05 | Emergency (ER) | payer MEDICARE, SELFPAY ==
[2022-01-02] VITALS (12 sets, daily range): BP systolic 0–232; BP diastolic 0–108; PULSE 0–107; RESP 0–32; TEMP 35.1–36.4; O2SAT 0–97
--- NOTE | ~2022-01-02 | CT_ITS ---
EXAMINATION: CT brain wo con DATE: 01/02/2022 10:00 INDICATION: Difficulty speaking. Weakness. TECHNIQUE: Computed tomography (CT) of the head was performed without intravenous contrast. The mA wa s adjusted according to patient size. Iterative reconstruction technique was employed. Exam dose: 17 7.46 mGy-cm total exam DLP. COMPARISON: October 11, 2021 CT brain No intracranial mass lesion or hemorrhage or cerebrovascular accident is detected. There is no midlin e shift or mass effect. There are central and cortical cerebral atrophy. No subdural or epidural hematoma. There is nonspecific diminished attenuation cerebral white matter, likely due to chronic small vessel ischemic change. There is some calcification of the carotid siphon internal carotid arteries. The paranasal sinuses and mastoid air cells are normally developed and aerated. No fracture or bone d estruction of the cranial vault. FINDINGS: The examination is limited by motion artifact. IMPRESSION: Cerebral atherosclerosis and chronic small vessel ischemic changes of the cerebral white matter Moderate cerebral volume loss No acute intracranial abnormality Which should be noted that CT is not sensitive for detection of hyperacute nonhemorrhagic cerebrovasc ular accident. Reviewed, dictated and finalized at [facility]. Reviewed, dictated and finalized at [facility]. IMPRESSION: Cerebral atherosclerosis and chronic small vessel ischemic changes of the cerebral white matter Moderate cerebral volume loss No acute intracranial abnormality Which should be noted that CT is not sensitive for detection of hyperacute nonh emorrhagic cerebrovascular accident.
--- NOTE | ~2022-01-02 | CT_ITS ---
EXAMINATION: CT diagnostic chest wo con DATE: 01/02/2022 09:59 INDICATION: Shortness of breath, dyspnea. Chest film and. TECHNIQUE: Computed tomography (CT) of the chest was performed without intravenous contrast. Automate d exposure control and iterative reconstruction technique were employed. Exam dose: 177.46 mGy-cm to wade exam DLP. COMPARISON: October 11, 2021 AP chest FINDINGS: There is prominent aortic, great vessel and coronary artery calcification. Normal heart siz e. No thoracic aortic aneurysm. No hilar or mediastinal mass lesion or lymphadenopathy is evident. No pericardial or pleural effusion. There is extensive mucous in the dependent aspect of the trachea and right mainstem bronchus and even greater amount of mucous secretions nearly completely filling the left mainstem bronchus, extending into the upper and lower lobe bronchi. Consider aggressive pulmonary toilet, possible bronchoscopy. No pulmonary infiltrate or consolidation or pulmonary mass lesion. There is a 2 cm bulla in the anter omedial right apex. Normal morphology of the adrenal glands. Hepatic and splenic calcified granulomas and left hilar calcified nodes, left upper and lower lobe ca lcified pulmonary granulomas, consistent with old granulomatous disease. Gastrostomy tube in the body of the stomach. Diffuse idiopathic skeletal hyperostosis of the thoracic spine. IMPRESSION: Extensive mucous secretions in the trachea, right mainstem bronchus and even greater in the left mainstem bronchus, nearly completely filling the bronchus, extending into the left upper and lower lobe bronchi. Aggressive pulmonary toilet is recommended, possibly with bronchoscopy as clinic ally warranted Old granulomatous disease Gastrostomy tube in stomach Reviewed, dictated and finalized at [facility]. Reviewed, dictated and finalized at [facility]. IMPRESSION: Extensive mucous secretions in the trachea, right mainstem bronchu s and even greater in the left mainstem bronchus, nearly completely filling the bronchus, extending into the left upper and lower lobe bronchi. Aggressive pul monary toilet is recommended, possibly with bronchoscopy as clinically warrante d Old granulomatous disease Gastrostomy tube in stomach
--- NOTE | 2022-01-02 09:20 | ECG_ITS ---
Measurements Intervals [place] Rate: 88 P: 75 [place]: 145 QRS: 71 QRSD: 94 T: 78 QT: 345 QTc: 419 Interpretive Statements SINUS RHYTHM ATRIAL PREMATURE COMPLEX BASELINE ARTIFACT- I, II, III, AVR, AVL, AVF, V1-V6 BORDERLINE ECG Electronically Signed On 01-02-2022 11:11:36 CDT by Valente Linn D.O.
[2022-01-02 10:27] LABS: Basophils Absolute Auto 0.02 K/mm3 (0.00-0.10); Basophils Percent Auto 0.2 % (0.0-1.0); Eosinophils Absolute Auto 0.01 K/mm3 (0.02-0.50); Eosinophils Percent Auto 0.1 % (1.0-6.0); Hematocrit 39.2 % (37.0-46.0); Hemoglobin 12.6 g/dL (12.4-15.3); Immature Granulocyte Absolute 0.03 K/mm3 (0.00-0.00); Immature Granulocyte Percent A 0.3 % (0.0-0.0); Lymphocytes Absolute Auto 1.44 K/mm3 (1.10-4.50); Lymphocytes Percent Auto 12.3 % (18.0-42.0); Mean Corpuscular HGB Conc 32.1 g/dL (32.0-36.0); Mean Corpuscular Hemoglobin 29.1 pg (27.0-31.0); Mean Corpuscular Volume 90.5 fL (78.0-102.0); Mean Platelet Volume 10.3 fl (8.7-11.0); Monocytes Absolute Auto 0.67 K/mm3 (0.10-0.90); Monocytes Percent Auto 5.7 % (2.0-11.0); Neutrophils Absolute Auto 9.5 K/mm3 (1.7-7.2); Neutrophils Percent Auto 81.4 % (50.0-70.0); Platelet Count Result 276 K/mm3 (150-420); Red Blood Count 4.33 M/mm3 (4.70-6.10); Red Cell Distribution Width 13.1 % (11.6-14.4); White Blood Count 11.7 K/mm3 (4.8-10.8)
[2022-01-02 10:28] LABS: Base Excess ABG 11.6 mmol/L (0-2); HCO3 ABG 37.2 mmol/L (23-29); Oxygen Content ABG 17.7 %vol (16.0-22.0); Oxygen Saturation ABG 92.5 % (95-97); PCO2 ABG 52.2 mmHg (35-45); PO2 ABG 64.2 mmHg (75-85); Total Hemoglobin 13.8 g/dL (12.0-18.0); pH ABG 7.47 (7.35-7.45)
[2022-01-02 10:30] LABS: Device ROOM AIR; Modified Allen's Test Pass; Site Drawn RIGHT BRACHIAL
[2022-01-02 10:44] LABS: Lactic Acid Reflex 0.8 mmol/L (0.4-2.0)
[2022-01-02 10:46] LABS: Alanine Aminotransferase 27 U/L (16-63); Albumin Level 3.5 g/dL (3.4-5.0); Alkaline Phosphatase 114 U/L (46-116); Anion Gap 1 mmol/L (8-16); Aspartate Amino Transferase 14 U/L (15-37); Bilirubin,Total 0.3 mg/dL (0.00-1.00); Blood Urea Nitrogen 24 mg/dL (7-18); Calcium 9.5 mg/dL (8.5-10.1); Carbon Dioxide 36 mmol/L (21-32); Chloride 99 mmol/L (98-108); Estimated Glomerular Filt Rate > 60; Glucose 146 mg/dL (70-99); NT Pro B Type Natriuretic Pept 67 pg/mL (0-125); Osmolality Calculated 289 mOsm/kg (285-295); Potassium 4.1 mmol/L (3.5-5.1); Sodium 136 mmol/L (136-145); Total Protein 6.6 g/dL (6.4-8.2); Troponin I 10.7 ng/L (0.00-60.4)
[2022-01-02] MEDS: IPRATROPIUM 0.5 MG/ALBUTEROL SULFATE 2.5 MG AMPUL.NEB 3 ML INHALATION ×2 (10:46→11:41)
[2022-01-02 10:51] LABS: Influenza Control Valid (Valid); SARS-CoV-2 Ag Negative (Negative)
[2022-01-02] MEDS: SODIUM CHLORIDE 0.9% IV 1,000 ML 999 ML IV CONT (10:56)
[2022-01-02] MEDS: methylPREDNISolone SOD SUCC 125 MG VIAL IV PUSH (10:56)
[2022-01-02 11:36] LABS: Add Urine Microscopic? NO; Appearance Urine Clear (Clear); Bilirubin Urine Negative (Negative); Blood Urine Negative (Negative); Color Urine Yellow (Yellow); Glucose Urine UA Negative (Negative); Ketones Urine Negative (Negative); Leukocyte Esterase Ur Negative (Negative); Nitrate Urine Negative (Negative); Protein Urine Negative (Negative); Urobilinogen Urine 0.2 mg/dL (0.2-1.0)
--- NOTE | 2022-01-02 13:29 | ED.SOB ---
HPI - SOB/Dyspnea General Chief Complaint: Shortness of Breath/Dyspnea Stated Complaint: AMBULANCE Time Seen by Provider: 01/02/22 09:07 Source: patient, family, EMS and RN notes reviewed Mode of arrival: EMS Limitations: physical limitation (pt was having breathing difficulty and answered with single words ) History of Present Illness MD elicited complaint: shortness of breath Pertinent past history: other (neurovascular disease with increasing resp difficulties and with preventive pulmonary toileting to be arranged) Onset (ago): day(s) Context: choking/aspiration Timing: constant Severity: moderate Exacerbating factors: nothing Relieving factors: bronchodilators Known history of: aspiration pneumonia Associated symptoms: sputum production, orthopnea, sense of impending doom and chest congestion Treatment prior to arrival: oxygen and bronchodilator Related Data Home Medications Medication Instructions Recorded Confirmed polyethylene glycol 3350 17 17 g PO DAILY PRN constipation 12/01/21 01/02/22 gram/dose oral powder (Miralax) Allergies Allergy/AdvReac Type Severity Reaction Status Date / Time hydrocodone Allergy Mild ITCHING Verified 10/14/21 10:30 Review of Systems Review of Systems: All systems reviewed & are unremarkable except as noted in HPI and below Constitutional: Constitutional: Reports no additional constitutional complaints Eyes: Eyes: Reports no additional eye complaints ENT: Reports system reviewed and no additional complaints, except as documented Cardiovascular: Cardiovascular: Reports no additional cardiovascular complaints Respiratory: Respiratory: Reports dyspnea Comments: pt had severe lung congestion and has been unable to cough up any mucus. Gastrointestinal: Gastrointestinal: Reports no additional gastrointestinal complaints Genitourinary: Genitourinary: Reports no additional male genitourinary complaints Musculoskeletal: Musculoskeletal: Reports no additional musculoskeletal complaints Integumentary/Breasts: Skin/Breast: Reports system reviewed and no additional complaints, except as docu Neurologic: Reports system reviewed and no additional complaints, except as documented Psychiatric: Psychiatric: Reports no additional psychiatric complaints Endocrine: Endocrine: Reports no additional endocrine complaints Hematologic/Lymphatic: Hematologic/Lymphatic: Reports no additional hematologic/lymphatic complaints Allergic/Immunologic: Allergic/Immunologic: Reports no additional allergic/immunologic complaints PMFSH Past Medical History Medical History Acidosis Acute respiratory failure with hypoxia and hypercarbia Altered mental status Benign prostatic hyperplasia Chronic constipation Chronic obstructive pulmonary disease Depression with anxiety Disorder of phrenic nerve Dizziness Dizziness, nonspecific Dysphagia CT of the brain on 09/19/2021 was negative. Completed 10 sessions with speech therapist. Encephalopathy Encounter to establish care Essential hypertension Gastroesophageal reflux disease History of tobacco abuse Hypercarbia Hyperlipidemia Malnutrition (~2020) Nocturia Respiratory failure Right-sided carotid artery disease 100% occlusion of the right coronary artery on carotid Doppler study 08/08/2021 with less than 50% on left. Screening examination for infectious disease Seasonal allergic rhinitis Sinusitis Weight loss Nearly 60 lb unintentional weight loss in 2020. CT of the brain, chest, abdomen, and pelvis were unremarkable in August and September 2021. Upper and lower endoscopies also reportedly unremarkable in fall 2020. Has had normal PSA. Surgical History Surgical History History of cardiac catheterization Family History Family History Sibling Colon cancer Father Hypertension
--- NOTE | 2022-01-02 15:21 | PC.NURSE ---
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 mts notified.
== END 2022-01-02 12:07 | disposition expired ==
PROVIDERS: Emergency Provider Emergency Medicine
DX: R09.2 Respiratory arrest (principal); Z87.891 Personal history of nicotine dependence; Z20.822 Contact with and (suspected) exposure to COVID-19
CPT/HCPCS: 36415; 36600; 70450; 71250; 80053; 81003; 82805; 83605; 83880; 84484; 85025; 87081; 87426; 87804; 87880; 93005; 94640; 96361; 96374; 99284; C9803; J2930; J7030